=== PATIENT | male | born 1955 | race Caucasian/White ===

== ENCOUNTER 2025-02-02 11:59 | Inpatient (IN) ==
[2025-02-02] MEDS: SODIUM CHLORIDE 0.9% 500 ML IV ONE (13:25)
--- NOTE | 2025-02-02 13:36 | XRay Report ---
XR chest 1V portable CLINICAL HISTORY: weakness COMPARISON STUDY: None FINDINGS: Heart size and pulmonary vasculature are normal. No consolidation or pleural effusion. No p neumothorax. IMPRESSION: No acute findings. ACT 112: Negative or not required by law. Electronically signed by: aMo Bustos M.D. 02/02/2025 1:35 PM
[2025-02-02 13:57] LABS: Hematocrit (blood only) 40.0 % (42.0-52.0); Hemoglobin 13.7 g/dl (14.0-18.0); Immature Granulocytes # (auto) 0.12 K/uL (0.01-0.20); Immature Granulocytes % (auto) 0.7 %; Mean Corpuscular Hemoglobin 26.3 pg (25.0-34.0); Mean Corpuscular Volume 76.8 fL (80.0-100.0); Platelet Count 348 K/uL (130-400); RDW Standard Deviation 38.5 fL (36.4-46.3); Red Blood Count 5.21 M/uL (4.70-6.10); White Blood Count 18.35 K/ul (4.8-10.8)
[2025-02-02 14:16] LABS: Alanine Aminotransferase 39.0 U/L (7-52); Albumin Globulin Ratio 1.2 (0.9-2); Albumin Level 4.4 gm/dl (3.4-5.0); Alkaline Phosphatase 106.0 U/L (34-104); Anion Gap 12.0 (3-11); Bilirubin,Total 0.6 mg/dl (0.2-1.0); Blood Urea Nitrogen 113.0 mg/dl (6-23); Calcium 9.6 mg/dl (8.6-10.3); Carbon Dioxide 17.0 mmol/L (21-32); Chloride 98.0 mmol/L (98-107); Creatine Kinase 30.0 U/L (30-223); Creatinine Clr Calc Pharmacy 21.9 ml/min; Globulin 3.6 gm/dl (2.5-4.0); Glucose 179.0 mg/dl (70-99(Fasting)); Magnesium 2.6 mg/dl (1.7-2.4); Potassium 5.0 mmol/L (3.5-5.1); Sodium 127.0 mmol/L (136-145); Total Protein 8.0 gm/dl (6.0-8.3)
[2025-02-02 14:27] LABS: INR 1.0 (0.9-1.1); Prothrombin Time 10.7 Seconds (9.0-12.0)
--- NOTE | 2025-02-02 14:29 | Electrocardiogram Report ---
Test Reason : Blood Pressure : */* mmHG Vent. Rate : 82 BPM Atrial Rate : 82 BPM P-R Int : 164 ms QRS Dur : 140 ms QT Int : 400 ms P-R-T Axes : 65 31 11 degrees QTcB Int : 467 ms Normal sinus rhythm Right bundle branch block Abnormal ECG When compared with ECG of 06-May-1998 19:24, Right bundle branch block is now Present Confirmed by Robby Hernandez ([id number]) on 02/02/2025 2:28:43 PM Referred By: REFERRED SELF Confirmed By: Robby Hernandez
[2025-02-02 14:32] LABS: Thyroid Stimulating Hormone 0.782 uIu/ml (0.300-4.500)
--- NOTE | 2025-02-02 14:56 | Emergency Department Note ---
ED Provider Note History of Present Illness Chief Complaint: Bleeding Stated Complaint: BLEEDING POST STOMACH SURGERY Time Seen by Provider: 02/02/25 12:14 69-year-old Maldivian male who presents to the emergency department with his ex- ) who also provides history) for evaluation of a fall and passing out last night, as well as bleeding from his stoma. Majority of patient history was performed using a Maldivian orthopedic technician at bedside. According to the patient, he has had several abdominal surgeries for stomach cancer. The patient reports that he has had intermittent black stools since his last surgery on 01/10/2025. The patient started to notice blood in his stomach bag the past few days. The patient reports that he felt lightheaded last night and think that he passed out. He denies any other injuries from his fall, including headache, neck pain, back pain or extremity injuries. He currently denies any chest pain, shortness of breath or abdominal pain, and in fact denies any pain at the time of my examination. Home Medications Medication Instructions Recorded Confirmed Type amlodipine 10 mg tablet 10 mg PO QAM 02/02/25 02/02/25 History atorvastatin 10 mg tablet 10 mg PO QAM 02/02/25 02/02/25 History finasteride 5 mg tablet 5 mg PO QAM 02/02/25 02/02/25 History melatonin 10 mg tablet 10 mg PO HS 02/02/25 02/02/25 History tamsulosin 0.4 mg capsule 0.4 mg PO QAM 02/02/25 02/02/25 History Allergies Allergy/AdvReac Type Severity Reaction Status Date / Time No Known Allergies Allergy Verified 05/18/02 15:51 Past Med/Surg History Problem List GI bleed Adenocarcinoma of rectosigmoid junction (Acute) Duodenitis (Acute) Acute kidney injury (Acute) Acute hyponatremia (Acute) Syncope (Acute) Medical History Adenocarcinoma of rectosigmoid junction Surgical History History of resection of large bowel Social History Smoking Status: Never smoker Preferred Language: Maldivian Feels Safe at Home: Yes Physical Exam Vital Signs Vital Signs - 24 hr 02/02/25 12:02 02/02/25 13:34 02/02/25 13:34 Temperature 36.6 C Temperature Source Temporal Artery Scan Pulse Rate - Lying Pulse Rate - Sitting Pulse Rate - Standing Pulse Rate 105 H Pulse Rate [Apical] 86 Pulse Rhythm [Apical] Pulse Strength [Apical] Respiratory Rate 16 16 Respiratory Effort / Characteristics Non-Labored Spontaneous Respiratory Depth Respiratory Pattern Blood Pressure - Lying Blood Pressure - Sitting Blood Pressure- Standing Blood Pressure 104/80 Blood Pressure [Right Arm] 139/94 Blood Pressure Mean 88 Blood Pressure Mean [Right Arm] 109 Blood Pressure Position [Right Arm] Pulse Oximetry 92 98 98 Oxygen Delivery Method Room Air Room Air Sepsis Recent Fever Within 48 Hours No Sepsis New/Unexplained Change in Mental Status N/A Sepsis Action Taken by Nursing No Action Required 02/02/25 13:34 02/02/25 16:19 02/02/25 17:27 Temperature Temperature Source Pulse Rate - Lying 102 H Pulse Rate - Sitting 110 H Pulse Rate - Standing 132 H Pulse Rate 86 Pulse Rate [Apical] 95 H Pulse Rhythm [Apical] Regular Pulse Strength [Apical] Normal Respiratory Rate 16 18 Respiratory Effort / Characteristics Non-Labored Spontaneous Respiratory Depth Normal Respiratory Pattern Regular Blood Pressure - Lying 112/86 Blood Pressure - Sitting 92/57 L Blood Pressure- Standing 96/35 L Blood Pressure Blood Pressure [Right Arm] 113/84 Blood Pressure Mean Blood Pressure Mean [Right Arm] 93 Blood Pressure Position [Right Arm] Lying Pulse Oximetry 98 97 Oxygen Delivery Method Room Air Sepsis Recent Fever Within 48 Hours Sepsis New/Unexplained Change in Mental Status Sepsis Action Taken by Nursing 02/02/25 18:03 Temperature Temperature Source Pulse Rate - Lying Pulse Rate - Sitting Pulse Rate - Standing Pulse Rate 95 H Pulse Rate [Apical] Pulse Rhythm [Apical] Pulse Strength [Apical] Respiratory Rate Respiratory Effort / Characteristics Respiratory Depth Respiratory Pattern Blood Pressure - Lying Blood Pressure - Sitting Blood Pressure- Standing Blood Pressure Blood Pressure [Right Arm] Blood Pressure Mean Blood Pressure Mean [Right Arm] Blood Pressure Position [Right Arm] Pulse Oximetry Oxygen Delivery Method Sepsis Recent Fever Within 48 Hours Sepsis New/Unexplained Change in Mental Status Sepsis Action Taken by Nursing CONSTITUTIONAL: Healthy and well nourished. Patient does not appear in any acute distress. HEENT: No scleral icterus or conjunctival injection/pallor. Mucous membranes are dry. RESPIRATORY: Clear to auscultation bilaterally with no wheezing, crackles, rhonchi or stridor. CARDIOVASCULAR: Regular rate and rhythm with no murmurs, rubs or gallops. GASTROINTESTINAL: Bowel sounds present in all quadrants. Patient does not have any focalized abdominal tenderness to palpation. The patient's ileostomy bag does have trace amounts of blood with good liquid stool output. No deo- ileostomy tube erythema or edema noted. MUSCULOSKELETAL: Full range of motion of all major joints without discomfort. INTEGUMENTARY: No rash or other significant dermatologic conditions noted. HEMATOLOGIC: No ecchymosis or petechiae. PSYCHIATRIC: Flat but pleasant affect. NEUROLOGIC: No focal neurologic deficits noted. Course Course Patient history and physical exam were performed. I did have our Slice Cutting Machine Operator Helper pull up [facility] records that I may have a more thorough understanding and history of the patient's prior surgical intervention. I did review an outside [facility] colorectal surgery follow-up visit from 01/25/2025, showing that the patient had a lower anterior resection in April 2024, with subsequent diverting loop ileostomy performed earlier this month. Next follow-up appointment was scheduled for 1 month to discuss formal repair of a postoperative colorectal stricture. Further review of a PCP office note from 12/21/2024 does not show any other significant medical problems other than hypertension. IV access was established, and labs were ordered and drawn. An ECG was performed, showing a normal sinus rhythm with right bundle branch block. No prior ECGs were available for comparison. The patient was placed on laboratory monitor while in the emergency department. A portable chest x-ray was performed and was normal, showing no subdiaphragmatic air or other concerning intrathoracic findings. Review of labs shows a whole host of abnormal findings, including a leukocytosis with neutrophilic shift. Coag studies were normal. CMP shows a hyponatremia at 127, creatinine of 3.25, elevated glucose of 179, magnesium 2.6 and elevated troponin of 32.5. TSH is normal. I did have our Slice Cutting Machine Operator Helper also pull up the patient's latest labs from 01/25/2025 showing that he had a creatinine of 3.0 at that time as well. Noncontrast CT imaging of the head and cervical spine were normal other than degenerative changes. CT with IV contrast of the abdomen and pelvis suggestive of acute duodenitis/peptic ulcer disease involving the duodenum. No bowel obstruction, abdominal free air or colonic abscess is noted. Findings were discussed again with the patient via Maldivian orthopedic technician. At this point, I did recommend consultation with the [facility] hospitalist service. I initially spoke with them, who indicated that they would review the patient's prior medical records, and discuss possibility of referral to [facility] for further workup of his duodenitis. After reviewing records, they did agree to admit the patient for further treatment. Please see their dictation for further treatment and final disposition. The case was also discussed with Dr. Foreman, ED attending physician, who agrees with workup and hospitalist consultation. Administered Medications Discontinued Medications Sodium Chloride (Nss) 500 mls @ 999 mls/hr IV .Q31M ONE Stop: 02/02/25 13:37 Last Infusion: 02/02/25 17:03 Dose: Infused Documented By: Admin: 02/02/25 13:25 Dose: 999 mls/hr Documented By: BEHZAD Pantoprazole Sodium (Protonix) 40 mg in 10 mls @ 5 mls/min IV NOW ONE Stop: 02/02/25 16:30 Last Admin: 02/02/25 16:44 Dose: 5 mls/min Documented By: LORNA Sodium Chloride (Nss) 1,000 mls @ 999 mls/hr IV .Q1H1M ONE Stop: 02/02/25 18:16 Last Admin: 02/02/25 17:35 Dose: 999 mls/hr Documented By: DWAINE Medical Decision Making Medical Records Attestation: I reviewed the patient's medical records. Home Medications was personally reviewed by me Laboratory Data Attestation: I reviewed the patient's lab results. 02/02/25 13:21 02/02/25 13:21 Lab Results 02/02/25 02/02/25 02/02/25 Range/Units 13:21 16:46 Unknown WBC 18.35 H (4.8-10.8) K/ul RBC 5.21 (4.70-6.10) M/uL Hgb 13.7 L (14.0-18.0) g/dl Hct 40.0 L (42.0-52.0) % MCV 76.8 L (80.0-100.0) fL MCH 26.3 (25.0-34.0) pg MCHC 34.3 (32.0-36.0) g/dL RDW Std Deviation 38.5 (36.4-46.3) fL RDW Coeff of Courtney 14.0 (11.5-14.5) % Plt Count 348 (130-400) K/uL MPV 10.9 (9.4-12.4) fL Immature Gran % (Auto) 0.7 % Neut % (Auto) 86.1 % Lymph % (Auto) 5.9 % [place] % (Auto) 7.2 % Eos % (Auto) 0.0 % Baso % (Auto) 0.1 % Neut # (Auto) 15.81 H (1.40-6.50) K/uL Lymph # (Auto) 1.09 L (1.20-3.40) K/uL [place] # (Auto) 1.32 H (0.11-0.59) K/uL Eos # (Auto) 0.00 (0.00-0.50) K/uL Baso # (Auto) 0.01 (0.00-0.20) K/uL Immature Gran # (Auto) 0.12 (0.01-0.20) K/uL PT 10.7 (9.0-12.0) Seconds INR 1.0 (0.9-1.1) Sodium 127 L (136-145) mmol/L Potassium 5.0 (3.5-5.1) mmol/L Chloride 98 (98-107) mmol/L Carbon Dioxide 17 L (21-32) mmol/L Anion Gap 12 H (3-11) BUN 113 H (6-23) mg/dl Creatinine 3.25 H (0.6-1.4) mg/dl Est Cr Clr Drug Dosing 21.9 ml/min eGFR 19.68 BUN/Creatinine Ratio 34.8 H (10-20) Glucose 179 H (70-99(Fasting)) mg/dl Osmolality 315 H (280-300) mOsm/kg Calcium 9.6 (8.6-10.3) mg/dl Magnesium 2.6 H (1.7-2.4) mg/dl Total Bilirubin 0.6 (0.2-1.0) mg/dl AST 15 (13-39) U/L ALT 39 (7-52) U/L Alkaline Phosphatase 106 H (34-104) U/L Total Creatine Kinase 30 (30-223) U/L Troponin I High Sens 32.5 H (0-20) pg/ml Total Protein 8.0 (6.0-8.3) gm/dl Albumin 4.4 (3.4-5.0) gm/dl Globulin 3.6 (2.5-4.0) gm/dl Albumin/Globulin Ratio 1.2 (0.9-2) TSH 0.782 (0.300-4.500) uIu/ml Urine Color Yellow Urine Appearance Cloudy A (Clear) Urine pH 5.0 (4.5-7.5) Ur Specific [place] 1.017 (1.000-1.030) Urine Protein 2+ H (Negative) Urine Glucose (UA) 1+ H (Negative) Urine Ketones Negative (Negative) Urine Blood 3+ H (Negative) Urine Nitrite Negative (Negative) Urine Bilirubin Negative (Negative) Urine Urobilinogen Negative (Negative) Ur Leukocyte Esterase 2+ H (Negative) Urine WBC (Auto) >50 H (0-5) /hpf Urine RBC (Auto) 6-10 H (0-2) /hpf U Hyaline Cast (Auto) >20 H (0-2) /lpf U Epithel Cells (Auto) 6-10 H (0-2) /hpf Urine Bacteria (Auto) None Seen (None Seen) Granular Casts Present A (None Prsent) /lpf Urine Osmolality 541 (500-800) mOsm/kg Ur Random Sodium 18 mmol/L Urine Comment Imaging Data Attestation: I personally reviewed and interpreted this imaging study as follows: My Impression: My interpretation of reportable chest x-ray does not show evidence for pneumonia, cardiomegaly or pneumothorax. My interpretation of a noncontrast CT scan of the head does not show evidence for skull fracture, intracranial bleed, midline shift or mass effect. My interpretation of noncontrast CT scan of the cervical spine shows degenerative changes without fracture or subluxation. My interpretation of CT with IV contrast of the abdomen and pelvis does not show any obvious diverticular changes, abdominal free air or abscesses. Radiologist does make mention of possible duodenitis versus peptic ulcer disease. Radiologist reports were otherwise reviewed with concurrence. Radiologist's Impression: Chest X-Ray 02/02/25 13:08 XR chest 1V portable CLINICAL HISTORY: weakness COMPARISON STUDY: None FINDINGS: Heart size and pulmonary vasculature are normal. No consolidation or pleural effusion. No pneumothorax. IMPRESSION: No acute findings. ACT 112: Negative or not required by law. Electronically signed by: Mao Bustos M.D. 02/02/2025 1:[address] 02/02/25 13:08 CT SCAN OF THE BRAIN WITHOUT IV CONTRAST CLINICAL HISTORY: Fall. COMPARISON STUDY: None. TECHNIQUE: Unenhanced axial CT scan of the brain was performed from the vertex to the skull base. A dose lowering technique was utilized adhering to the principles of ALARA. FINDINGS: Brain parenchyma: No acute intracranial hemorrhage, midline shift or mass effect is present. Nelson-white matter differentiation is preserved. There are no extra- axial fluid collections. There are no findings to suggest acute dural sinus thrombosis or acute territorial infarct. White matter hypodensity suggests small vessel disease. Ventricles, sulci, cisterns: There is no hydrocephalus. The basal cisterns are patent. Calvarium: There are no calvarial fractures. Sinuses and mastoids: The visualized paranasal sinuses are clear. The mastoid air cells are well pneumatized. Orbits: The bony orbits are grossly intact. IMPRESSION: 1. No acute intracranial findings. 2. No calvarial fractures. ACT 112: Negative or not required by law. Electronically signed by: Devin Abdi M.D. 02/02/2025 3:[address] 02/02/25 13:11 CT cervical spine wo con CT DOSE: 1135.92 mGy.cm CLINICAL HISTORY: s/p fall, possible syncope. COMPARISON: None TECHNIQUE: Multiple axial CT images of the cervical spine were obtained without contrast. A dose lowering technique was utilized adhering to the principles of ALARA. FINDINGS: There are mild diffuse degenerative changes of the cervical spine. There are small calcifications adjacent to the anterior superior aspect of the C4, C5, C6, and C7 vertebral bodies which are likely degenerative in nature. No cervical spine fracture or subluxation seen. IMPRESSION: No cervical spine fracture seen. ACT 112: Negative or not required by law. The above report was generated using voice recognition software. It may contain grammatical, syntax or spelling errors. Electronically signed by: Mao Bustos M.D. 02/02/2025 3:28 PM Abdomen/Pelvis CT 02/02/25 14:[address] WITHOUT CONTRAST CT DOSE: 869.62 mGy.cm HISTORY: Follow-up study in patient with history of rectosigmoid carcinoma and acute GI bleed Stoma blood,rectosigmoid CA,nonpatent coloproctost TECHNIQUE: Multiaxial CT images of the abdomen and pelvis were performed without contrast. A dose lowering technique was utilized adhering to the principles of ALARA. COMPARISON STUDY: None. FINDINGS: Moderate coronary artery calcifications. Trace right pleural effusion with mild bibasilar atelectasis. 5 mm solid nodule in the right lower lobe on image 4 series 3. No pneumatosis or pneumoperitoneum. The unenhanced spleen, pancreas, contracted gallbladder and right adrenal gland are within normal limits. Thickening of the left adrenal gland favors hyperplasia. There are a few scattered punctate calcifications noted throughout the liver. Possible cyst of the right hepatic lobe, 9 mm. There are a few left- sided renal sinus cysts. Moderate right-sided hydroureteronephrosis with ureteral stent in place. Prostatomegaly. Bladder wall thickening which speculation and numerous diverticula. No renal or ureteral calculi. Atherosclerosis of the aorta without aneurysm. No lymphadenopathy. Moderate distal soft tissue wall thickening with periesophageal stranding. There is additional wall thickening of the pylorus, first and second portions of the duodenum with apparent mucosal ulceration involving the first portion of the duodenum on image 107 series 3. No abscess or definite extraluminal air. Soft tissue thickening with centrally air-filled collection within the presacral tissues measures up to approximately 9 cm and may demonstrate fistulous connection with the adjacent rectum where there are associated surgical sutures. There is a right lower quadrant ileostomy. Noninflamed appendix. No acute fracture or destructive bone lesion. Likely chronic anterior cortical thickening of the sacrum adjacent to the aforementioned collection. Possible sebaceous cyst in the left lower back measuring 3 cm. IMPRESSION: 1. Findings suggestive of acute duodenitis/peptic ulcer disease involving the first and second portions of the duodenum. Findings could be correlated with endoscopy to exclude an ulcerative mucosal malignancy. 2. No bowel obstruction, pneumoperitoneum or abscess. 3. Probable distal esophagitis. 4. Likely chronic presacral soft tissue thickening/collection which may demonstrate fistulous connection with the adjacent rectum. 5. Right lower quadrant ileostomy. 6. Prostatomegaly with chronic outlet obstruction. 7. Moderate right-sided hydroureteronephrosis with ureteral stent in place. 8. 5 mm solid nodule of the right lower lobe. ACT 112: Negative or not required by law. The above report was generated using voice recognition software. It may contain grammatical, syntax or spelling errors. Electronically signed by: Anson Alvarez M.D. 02/02/2025 3:31 PM ECG Data Attestation: I personally reviewed and interpreted this ECG as follows: Indication: + syncope Rate (beats per minute): 82 Rhythm: + normal sinus ECG Intervals/blocks: + Right Bundle branch block ECG [place]: + Normal ECG ST segments: + Normal ST segments Comparison ECG Date: no prior available MDM Narrative Cardiac monitoring: An order was placed for continuous cardiac monitoring. The monitor shows a rate of 82 bpm with a normal sinus rhythm. quality assurance monitor body history was reviewed throughout the evaluation, and no dysrhythmias were noted. See ED Course section for further details of today's visit. The patient presents with complaint of a syncopal episode last night. On presentation today, however, the patient denies any pain. He reports that he has had some blood through his ileostomy site over the past several days, with a history of multiple bowel surgeries for rectosigmoid adenocarcinoma. These procedures were performed at [facility]. On today's workup, the patient does not have any concerning cardiac findings other than a right bundle branch block, however he does have a bumped troponin. His labs also show significant electrolyte abnormalities, with a leukocytosis of over 18,000 with neutrophilic shift, hyponatremia, and increasing creatinine of 3.25, when compared to prior labs that were just drawn on 01/25/25. His troponin was also mildly elevated at 32.5. CT imaging of the abdomen and pelvis does show questionable duodenitis versus peptic ulcer disease versus malignancy, otherwise no other acute findings of the abdomen pelvis, related to his prior surgical procedures. I did discuss the case further with the [facility] hospitalist service, who reviewed his outside records, and does agree to admit the patient for further management. The case was also discussed with Dr. Foreman, ED attending physician, who agrees with workup and hospitalist consultation. Impression Syncope, Acute hyponatremia, Acute kidney injury, Duodenitis, Adenocarcinoma of rectosigmoid junction Discharge Plan Visit Data Chief Complaint: Bleeding Stated Complaint: BLEEDING POST STOMACH SURGERY ED Provider: Ignacia Foreman ED Midlevel Provider: John Guallpa Discharge Problem: Syncope, Acute hyponatremia, Acute kidney injury, Duodenitis, Adenocarcinoma of rectosigmoid junction Patient Disposition: Admitted As Inpatient Condition: Fair Forms Stand Alone Forms: [facility] Prescriptions Prescriptions: No Action atorvastatin 10 mg tablet 10 mg PO QAM tamsulosin 0.4 mg capsule 0.4 mg PO QAM amlodipine 10 mg tablet 10 mg PO QAM finasteride 5 mg tablet 5 mg PO QAM melatonin 10 mg Tablet 10 mg PO HS Referrals Referrals: Manuel Jj DO [Primary Care Provider] - ED DC CONDITION Conditon at Discharge Condition at Discharge: Fair
--- NOTE | 2025-02-02 15:06 | Emergency Department Note ---
ED Visit Note I was consulted by the Advanced Practice Provider, John Guallpa PA-C. I performed a substantive portion of the visit. This includes aspects of: History: Patient is a 69-year-old male presenting with syncope and a fall. Patient reports that he has had several abdominal surgeries for history of stomach cancer. He has had intermittent black stools since his last surgery in early January. He noticed some blood in his stoma bag a few days ago. He started feeling lightheaded last night and thinks he may have passed out. MDM: Workup in the emergency department does show a leukocytosis, hyponatremia and new significantly elevated creatinine levels. I have elevated troponin. CT head without contrast negative for acute pathology. CT cervical spine negative for acute pathology. CT abdomen/pelvis showed findings of acute duodenitis versus peptic ulcer disease. Patient was given IV fluids and Protonix in the ER. Will admit to hospitalist service for further evaluation and management. .
--- NOTE | 2025-02-02 15:30 | CT Scan Report ---
CT cervical spine wo con CT DOSE: 1135.92 mGy.cm CLINICAL HISTORY: s/p fall, possible syncope. COMPARISON: None TECHNIQUE: Multiple axial CT images of the cervical spine were obtained without contrast. A dose low ering technique was utilized adhering to the principles of ALARA. FINDINGS: There are mild diffuse degenerative changes of the cervical spine. There are small calcific ations adjacent to the anterior superior aspect of the C4, C5, C6, and C7 vertebral bodies which are likely degenerative in nature. No cervical spine fracture or subluxation seen. IMPRESSION: No cervical spine fracture seen. ACT 112: Negative or not required by law. The above report was generated using voice recognition software. It may contain grammatical, syntax o r spelling errors. Electronically signed by: Mao Bustos M.D. 02/02/2025 3:28 PM
--- NOTE | 2025-02-02 15:32 | CT Scan Report ---
ABDOMEN AND PELVIS CT WITHOUT CONTRAST CT DOSE: 869.62 mGy.cm HISTORY: Follow-up study in patient with history of rectosigmoid carcinoma and acute GI bleed Stoma blood,rectosigmoid CA,nonpatent coloproctost TECHNIQUE: Multiaxial CT images of the abdomen and pelvis were performed without contrast. A dose lo wering technique was utilized adhering to the principles of ALARA. COMPARISON STUDY: None. FINDINGS: Moderate coronary artery calcifications. Trace right pleural effusion with mild bibasilar a telectasis. 5 mm solid nodule in the right lower lobe on image 4 series 3. No pneumatosis or pneumope ritoneum. The unenhanced spleen, pancreas, contracted gallbladder and right adrenal gland are within normal richards its. Thickening of the left adrenal gland favors hyperplasia. There are a few scattered punctate calc ifications noted throughout the liver. Possible cyst of the right hepatic lobe, 9 mm. There are a few left-sided renal sinus cysts. Moderate right-sided hydroureteronephrosis with ureteral stent in plac e. Prostatomegaly. Bladder wall thickening which speculation and numerous diverticula. No renal or ur eteral calculi. Atherosclerosis of the aorta without aneurysm. No lymphadenopathy. Moderate distal soft tissue wall thickening with periesophageal stranding. There is additional wall t hickening of the pylorus, first and second portions of the duodenum with apparent mucosal ulceration involving the first portion of the duodenum on image 107 series 3. No abscess or definite extralumina l air. Soft tissue thickening with centrally air-filled collection within the presacral tissues measu res up to approximately 9 cm and may demonstrate fistulous connection with the adjacent rectum where there are associated surgical sutures. There is a right lower quadrant ileostomy. Noninflamed appendi x. No acute fracture or destructive bone lesion. Likely chronic anterior cortical thickening of the s acrum adjacent to the aforementioned collection. Possible sebaceous cyst in the left lower back measu ring 3 cm. IMPRESSION: 1. Findings suggestive of acute duodenitis/peptic ulcer disease involving the first and second portio ns of the duodenum. Findings could be correlated with endoscopy to exclude an ulcerative mucosal padmini gnancy. 2. No bowel obstruction, pneumoperitoneum or abscess. 3. Probable distal esophagitis. 4. Likely chronic presacral soft tissue thickening/collection which may demonstrate fistulous connect ion with the adjacent rectum. 5. Right lower quadrant ileostomy. 6. Prostatomegaly with chronic outlet obstruction. 7. Moderate right-sided hydroureteronephrosis with ureteral stent in place. 8. 5 mm solid nodule of the right lower lobe. ACT 112: Negative or not required by law. The above report was generated using voice recognition software. It may contain grammatical, syntax o r spelling errors. Electronically signed by: Anson Alvarez M.D. 02/02/2025 3:31 PM
--- NOTE | 2025-02-02 15:39 | CT Scan Report ---
CT SCAN OF THE BRAIN WITHOUT IV CONTRAST CLINICAL HISTORY: Fall. COMPARISON STUDY: None. TECHNIQUE: Unenhanced axial CT scan of the brain was performed from the vertex to the skull base. A dose lowering technique was utilized adhering to the principles of ALARA. FINDINGS: Brain parenchyma: No acute intracranial hemorrhage, midline shift or mass effect is present. Nelson-whi te matter differentiation is preserved. There are no extra-axial fluid collections. There are no find ings to suggest acute dural sinus thrombosis or acute territorial infarct. White matter hypodensity s uggests small vessel disease. Ventricles, sulci, cisterns: There is no hydrocephalus. The basal cisterns are patent. Calvarium: There are no calvarial fractures. Sinuses and mastoids: The visualized paranasal sinuses are clear. The mastoid air cells are well pneu matized. Orbits: The bony orbits are grossly intact. IMPRESSION: 1. No acute intracranial findings. 2. No calvarial fractures. ACT 112: Negative or not required by law. Electronically signed by: Devin Abdi M.D. 02/02/2025 3:37 PM
--- NOTE | 2025-02-02 16:31 | History & Physical Report ---
<Statement entered by Fredy Mitchell, DO - 02/02/25 21:30> I have seen and examined the patient and have discussed the case with the advance practice provider. I have reviewed the advanced practitioner's documentation, and I agree with, and take responsibility for that plan of care. Able to speak with patient through video premises technician with KELSEY at bedside. Patient with acute blood loss due to suspected upper GI bleed as evidenced on imaging. Continue to monitor hemoglobin PPI twice daily Suspect acute kidney injury is prerenal due to excessive volume loss and patient not orally replacing. Continue IV fluid resuscitation monitoring renal function. If renal function does not improve with IV fluids may need to consider nephrology consultation Further plan of care as outlined below I spent a total of 19 minutes coordinating, documenting, and providing care for this patient excluding time spent by another provider/QHP. 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 #GI Bleed #History rectosigmoid adenocarcinoma S/P LAR with coloproctostomy Possible ulcer/duodenitis vs underlying malignancy S/P exploratory laparotomy, takedown of colorectal anastomoses, revised anastomoses, diverting ostomy by Dr. Yip on 01/10/25 at [facility]. Today in ER Afebrile, P: 105, R: 16, BP 104/80, 92% on room air In ER given 500 mL NSS Repeat vitals: P: 95, R: 17, BP 140/97, 98% on room air In ER WBC: 18 (WBC 11 on 01/25/2025 and 6 on 01/15/2025), H/H: 13/40 (Hgb 13 on 01/25/2025 and 10 on 01/15/2025) CT Abd/pelvis 1. Findings suggestive of acute duodenitis/peptic ulcer disease involving the first and second portions of the duodenum. Findings could be correlated with endoscopy to exclude an ulcerative mucosal malignancy. 2. No bowel obstruction, pneumoperitoneum or abscess. 3. Probable distal esophagitis. 4. Likely chronic presacral soft tissue thickening/collection which may demonstrate fistulous connection with the adjacent rectum. 5. Right lower quadrant ileostomy. Noted black color stools in ostomy bag Hemoccult stool Monitor H&H NPO IVF PPI IV BID GI consult per outpt chart review: Flex Sig 11/2024 Impression: Preparation of the colon was fair. Non-patent end-to-end coloproctostomy, characterized by severe stenosis. Unable to identify the true anastomotic lumen due to the progression of the stenosis. A small <5mm area of anastomotic dehiscence was noted. Dilation was not performed. Benign granular polypoid lesion at the colonic anastomosis. 01/12/25 MRI Rectal Cancer w/wo contrast: Fibrotic stenosis and tethering of the rectosigmoid anastomosis. In addition, there is breakdown of the posterior aspect of the anastomosis with an associated presacral collection. No viable tumor is seen. 01/25/25 Follow up with colorectal surgery at [facility] and decision to keep his ileostomy in place and was concern of ileostomy is putting out too much and causing dehydration. Plan was to see back in 1 month to discuss formal repair of his colorectal stricture. #Syncope Reported lightheaded with standing x 1 week with suspected syncope yesterday CT Head: No acute intracranial findings. No calvarial fractures. Suspect orthostatic hypotension Obtain orthostatic vitals Hold home amlodipine and finasteride for now Fall precautions IVF #ELDON Poor oral intake. Suspect moderate ostomy output CT abd/pelvis: Prostatomegaly with chronic outlet obstruction. Moderate right- sided hydroureteronephrosis with ureteral stent in place. BUN: 113, Cr: 3.25 Recent post op ELDON treated with IVF at [facility] . Improvement of renal function upon discharge on 01/15/25. (Max Cr: 2.6 on 01/11/25, improved to Cr: 1.9 on 01/15/25) IVF Monitor renal functions, avoid nephrotoxic agents If no improvement consider nephrology consult #Hyponatremia Poor oral intake with vomiting Na: 127 In ER given 500ml NSS Obtain serum osmolality, urine osmolality, urine sodium IVF Monitor BMP #Abnormal UA #Hydronephrosis 01/10/25 S/P Cystoscopy, bilateral retrograde pyelograms, Cystoscopy, right ureteral stent placement, left ureteral catheter placement at [facility] Was initially treated for possible UTI with Rocephin and urine culture was negative so antibiotics discontinued during recent [facility] admission. Denies dysuria, hematuria, urinary frequency or retention CT Abd/pelvis: Today Abnormal UA: 2+ leuk esterase, >50 WBC, 6-10 RBC, 6-10 epithelial cells, no bacteria, granular casts present Was initially treated for possible UTI with Rocephin and urine culture was negative so antibiotics discontinued. Urine culture, blood culture pending Empiric Rocephin for now, follow urine culture #Elevated Troponin Denies CP, SOB EKG: Sinus rhythm, rate 80 RBBB per my interpretation Per outpatient chart review EKG 01/10/2025: Sinus rhythm, occasional PVC, RBBB Troponin: 32 Repeat troponin EKG in am If troponins uptrending or CP consider echo and/or cardiology consult #HTN Hold amlodipine for now with lower BPs and symptoms of orthostasis #BPH Continue Flomax Will hold finasteride for now with orthostatic symptoms #Pulmonary nodule CT abd/pelvis noted 5 mm solid nodule of the right lower lobe. Will need further outpatient follow up DVT Prophylaxis SCDs Admit Telemetry DNR/DNI as per discussion with pt, pt's Follows with Albina Chang PA-C for routine care Pt was seen and care coordinated with Dr Mitchell. See addendum I spent a total of 80 minutes reviewing notes, outpatient records, labs, medication, coordinating, documenting and providing care for this patient excluding time spent in the performance of separately billed services and excluding time spent by another provider/QHP. 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 Patient is Argentine speaking and use the premises technician service. Per chart review patient with history hospitalization at [facility] 01/10/2025-01/15/2025 for exploratory laparotomy, takedown of colorectal anastomoses, revised anastomoses, diverting ostomy by Dr. Yip on 01/10/25. S/P cystoscopy and right ureteral stent for hydronephrosis on 01/10/25 also. Post-op developed ELDON treated with IVF. Was initially treated for possible UTI with Rocephin and urine culture was negative so antibiotics discontinued. Improvement of renal function upon discharge on 01/15/25. Patient states one week ago started with black color output into ostomy bag. States for past week with nausea and having vomiting with eating and drinking. States vomited yesterday black color and this morning black color emesis. Denies any further vomiting. He reports has had constant abdominal discomfort since his procedure several weeks ago and points to across his abdomen. He doesn't feel any worsening abdominal pain. He states he empties his bag multiple times a day and reports has varying amounts of output but is unable to quantify how much. He feels it varies and has been similar for past couple of months. Patient reports for past week having dizziness/lightheadedness with standing. Yesterday stood up and felt lightheaded and reports fell and thinks passed out. He was able to get himself up. Denies dizziness at rest. Denies CP, SOB, NAQVI, vision changes, paresthesias. States hasn't been taking BP meds as concerned with dizziness and low blood pressure. No history EGD in past. Denies NSAID use. Denies fever/chills, NAQVI, neck pain, CP, SOB, orthopnea, palpitations, cough, sore throat, rhinorrhea, paresthesias, extremity weakness, extremity edema, rashes, dysuria, hematuria, urinary retention, urinary frequency. Allergies Allergy/AdvReac Type Severity Reaction Status Date / Time No Known Allergies Allergy Verified 05/18/02 15:51 Home Medications Medication Instructions Recorded Confirmed Type amlodipine 10 mg tablet 10 mg PO QAM 02/02/25 02/02/25 History finasteride 5 mg tablet 5 mg PO QAM 02/02/25 02/02/25 History melatonin 10 mg tablet 10 mg PO HS 02/02/25 02/02/25 History tamsulosin 0.4 mg capsule 0.4 mg PO QAM 02/02/25 02/02/25 History Past Med/Surg History Problem List GI bleed Adenocarcinoma of rectosigmoid junction (Acute) Duodenitis (Acute) Acute kidney injury (Acute) Acute hyponatremia (Acute) Syncope (Acute) Medical History Adenocarcinoma of rectosigmoid junction Surgical History History of colonoscopy History of resection of large bowel Family History Father Stroke Mother Diabetes Social History Smoking Status: Never smoker Hx Alcohol Use: No Hx Substance Use: No Preferred Language: Argentine Feels Safe at Home: Yes Review of Systems Review of Systems: All systems reviewed & are unremarkable except as noted in HPI & below Physical Exam Physical Exam: General: no distress, WDWN Head: normocephalic, atraumatic Eyes: PERRL, EOM's intact, conjunctiva non-injected, anicteric ENT: normal inspection external ears, nose, mucous membranes mildly dry Neck: supple, trachea midline Lungs: clear, no respiratory distress, no wheezing/rhonchi/rales CV: RRR, no murmur, no pretibial edema Abd: +ostomy with black color stool noted in bag, normal BS, soft, non-tender to palpation Ext: no cyanosis, no calf tenderness Neuro: A&O x 3, no focal deficits noted, normal affect Skin: warm, dry Results & Data Results & Data Vital Signs (Past 12 Hours) Vital Signs Temp Pulse Pulse Resp BP BP Pulse Ox 02/02/25 16:19 95 H 18 113/84 97 02/02/25 13:34 86 16 98 02/02/25 13:34 86 16 139/94 98 02/02/25 13:34 98 02/02/25 12:02 36.6 C 105 H 16 104/80 92 O2 Del Method 02/02/25 16:19 02/02/25 13:34 Room Air 02/02/25 13:34 Room Air 02/02/25 13:34 Room Air 02/02/25 12:02 Laboratory Results Short CBC 02/02/25 Range/Units 13:21 WBC 18.35 H (4.8-10.8) K/ul Hgb 13.7 L (14.0-18.0) g/dl Hct 40.0 L (42.0-52.0) % Plt Count 348 (130-400) K/uL BMP 02/02/25 13:21 Sodium 127 L Potassium 5.0 Chloride 98 Carbon Dioxide 17 L BUN 113 H Creatinine 3.25 H Glucose 179 H Calcium 9.6 Cardiac Enzymes 02/02/25 Range/Units 13:21 Total Creatine Kinase 30 (30-223) U/L Liver Function 02/02/25 Range/Units 13:21 Total Bilirubin 0.6 (0.2-1.0) mg/dl AST 15 (13-39) U/L ALT 39 (7-52) U/L Alkaline Phosphatase 106 H (34-104) U/L Albumin 4.4 (3.4-5.0) gm/dl Urine 02/02/25 Range/Units 16:46 Urine Color Yellow Urine Appearance Cloudy A (Clear) Urine pH 5.0 (4.5-7.5) Ur Specific [place] 1.017 (1.000-1.030) Urine Protein 2+ H (Negative) Urine Glucose (UA) 1+ H (Negative) Diagnostic Findings Chest X-Ray 02/02/25 13:08 XR chest 1V portable CLINICAL HISTORY: weakness COMPARISON STUDY: None FINDINGS: Heart size and pulmonary vasculature are normal. No consolidation or pleural effusion. No pneumothorax. IMPRESSION: No acute findings. ACT 112: Negative or not required by law. Electronically signed by: Mao Bustos M.D. 02/02/2025 1:[address] 02/02/25 13:08 CT SCAN OF THE BRAIN WITHOUT IV CONTRAST CLINICAL HISTORY: Fall. COMPARISON STUDY: None. TECHNIQUE: Unenhanced axial CT scan of the brain was performed from the vertex to the skull base. A dose lowering technique was utilized adhering to the principles of ALARA. FINDINGS: Brain parenchyma: No acute intracranial hemorrhage, midline shift or mass effect is present. Nelson-white matter differentiation is preserved. There are no extra- axial fluid collections. There are no findings to suggest acute dural sinus thrombosis or acute territorial infarct. White matter hypodensity suggests small vessel disease. Ventricles, sulci, cisterns: There is no hydrocephalus. The basal cisterns are patent. Calvarium: There are no calvarial fractures. Sinuses and mastoids: The visualized paranasal sinuses are clear. The mastoid air cells are well pneumatized. Orbits: The bony orbits are grossly intact. IMPRESSION: 1. No acute intracranial findings. 2. No calvarial fractures. ACT 112: Negative or not required by law. Electronically signed by: Devin Abdi M.D. 02/02/2025 3:[address] 02/02/25 13:11 CT cervical spine wo con CT DOSE: 1135.92 mGy.cm CLINICAL HISTORY: s/p fall, possible syncope. COMPARISON: None TECHNIQUE: Multiple axial CT images of the cervical spine were obtained without contrast. A dose lowering technique was utilized adhering to the principles of ALARA. FINDINGS: There are mild diffuse degenerative changes of the cervical spine. There are small calcifications adjacent to the anterior superior aspect of the C 4, C5, C6, and C7 vertebral bodies which are likely degenerative in nature. No cervical spine fracture or subluxation seen. IMPRESSION: No cervical spine fracture seen. ACT 112: Negative or not required by law. The above report was generated using voice recognition software. It may contain grammatical, syntax or spelling errors. Electronically signed by: Mao Bustos M.D. 02/02/2025 3:28 PM Abdomen/Pelvis CT 02/02/25 14:[address] WITHOUT CONTRAST CT DOSE: 869.62 mGy.cm HISTORY: Follow-up study in patient with history of rectosigmoid carcinoma and acute GI bleed Stoma blood,rectosigmoid CA,nonpatent coloproctost TECHNIQUE: Multiaxial CT images of the abdomen and pelvis were performed without contrast. A dose lowering technique was utilized adhering to the principles of ALARA. COMPARISON STUDY: None. FINDINGS: Moderate coronary artery calcifications. Trace right pleural effusion with mild bibasilar atelectasis. 5 mm solid nodule in the right lower lobe on image 4 series 3. No pneumatosis or pneumoperitoneum. The unenhanced spleen, pancreas, contracted gallbladder and right adrenal gland are within normal limits. Thickening of the left adrenal gland favors hyperplasia. There are a few scattered punctate calcifications noted throughout the liver. Possible cyst of the right hepatic lobe, 9 mm. There are a few left- sided renal sinus cysts. Moderate right-sided hydroureteronephrosis with ureteral stent in place. Prostatomegaly. Bladder wall thickening which speculation and numerous diverticula. No renal or ureteral calculi. Atherosclerosis of the aorta without aneurysm. No lymphadenopathy. Moderate distal soft tissue wall thickening with periesophageal stranding. There is additional wall thickening of the pylorus, first and second portions of the duodenum with apparent mucosal ulceration involving the first portion of the duodenum on image 107 series 3. No abscess or definite extraluminal air. Soft tissue thickening with centrally air-filled collection within the presacral tissues measures up to approximately 9 cm and may demonstrate fistulous connection with the adjacent rectum where there are associated surgical sutures. There is a right lower quadrant ileostomy. Noninflamed appendix. No acute fracture or destructive bone lesion. Likely chronic anterior cortical thickening of the sacrum adjacent to the aforementioned collection. Possible sebaceous cyst in the left lower back measuring 3 cm. IMPRESSION: 1. Findings suggestive of acute duodenitis/peptic ulcer disease involving the first and second portions of the duodenum. Findings could be correlated with endoscopy to exclude an ulcerative mucosal malignancy. 2. No bowel obstruction, pneumoperitoneum or abscess. 3. Probable distal esophagitis. 4. Likely chronic presacral soft tissue thickening/collection which may demonstrate fistulous connection with the adjacent rectum. 5. Right lower quadrant ileostomy. 6. Prostatomegaly with chronic outlet obstruction. 7. Moderate right-sided hydroureteronephrosis with ureteral stent in place. 8. 5 mm solid nodule of the right lower lobe. ACT 112: Negative or not required by law. The above report was generated using voice recognition software. It may contain grammatical, syntax or spelling errors. Electronically signed by: Anson Alvarez M.D. 02/02/2025 3:31 PM ECG Additional Comments: Sinus rhythm, rate 80 RBBB per my interpretation Per outpatient chart review EKG 01/10/2025: Sinus rhythm, occasional PVC, RBBB
[2025-02-02] MEDS: PANTOprazole 40 MG/10 ML SYR IV ONE (16:44)
[2025-02-02 17:23] LABS: Appearance Urine Cloudy (Clear); Bacteria Urine Automated None Seen (None Seen); Cast Urine Automated >20 /lpf (0-2); Glucose Urine UA 1+ (Negative); WBC Urine Automated >50 /hpf (0-5)
[2025-02-02] MEDS: SODIUM CHLORIDE 0.9% 1,000 ML IV ONE (17:35)
[2025-02-03] MEDS ORDERED: ONDANSETRON INJ 2 MG/ML 2 ML VIAL IV PRN (00:03)
[2025-02-03] MEDS: cefTRIAXone SODIUM 2,000 MG/50 ML BAG IV SCH (00:38)
[2025-02-03] MEDS: SODIUM CHLORIDE 0.9% 1,000 ML IV SCH (00:39)
[2025-02-03] MEDS: PANTOprazole 40 MG/10 ML SYR IV SCH (00:39)
[2025-02-03 07:09] LABS: Hematocrit (blood only) 35.1 % (42.0-52.0); Hemoglobin 12.1 g/dl (14.0-18.0); Immature Granulocytes # (auto) 0.06 K/uL (0.01-0.20); Immature Granulocytes % (auto) 0.5 %; Mean Corpuscular Hemoglobin 27.3 pg (25.0-34.0); Mean Corpuscular Volume 79.2 fL (80.0-100.0); Platelet Count 266 K/uL (130-400); RDW Standard Deviation 41.3 fL (36.4-46.3); Red Blood Count 4.43 M/uL (4.70-6.10); White Blood Count 12.33 K/ul (4.8-10.8)
[2025-02-03 07:49] LABS: Anion Gap 9.0 (3-11); Blood Urea Nitrogen 98.0 mg/dl (6-23); Calcium 9.0 mg/dl (8.6-10.3); Carbon Dioxide 18.0 mmol/L (21-32); Chloride 107.0 mmol/L (98-107); Creatinine Clr Calc Pharmacy 26.6 ml/min; Glucose 116.0 mg/dl (70-99(Fasting)); Magnesium 2.4 mg/dl (1.7-2.4); Potassium 4.5 mmol/L (3.5-5.1); Sodium 134.0 mmol/L (136-145)
--- NOTE | 2025-02-03 08:51 | Gastrointestinal Consultation ---
Date of Consultation February 03, 2025 Assessment & Plan (1) GI bleed: Dark stools for a week but not much drop in hemoglobin. CT suggests duodenal ulcer. Agree with use of pantoprazole at this point. Since hemoglobin still normal, EGD not urgent/emergent so will plan EGD for wednesday. Can have clear li quid diet until then. History of Present Illness Reason for Consultation: melena Attending Physician: John Rascon MD History of Present Illness 69 year old [place] gentleman who is here with dark stools for a week. Patient has a history of colon cancer and just had diverting ileostomy done at [facility] for anastomotic problems. Patient does not know specifically when the dark stools started. He has had "a little pain". Denies taking peptobismol. Has never had an ulcer before. H/H remain stable after rehydration although a small drop. CT suggests duodenal ulcer or duodenitits Allergies Allergy/AdvReac Type Severity Reaction Status Date / Time No Known Allergies Allergy Verified 05/18/02 15:51 Home Medications Medication Instructions Recorded Confirmed Type amlodipine 10 mg tablet 10 mg PO QAM 02/02/25 02/02/25 History finasteride 5 mg tablet 5 mg PO QAM 02/02/25 02/02/25 History melatonin 10 mg tablet 10 mg PO HS 02/02/25 02/02/25 History tamsulosin 0.4 mg capsule 0.4 mg PO QAM 02/02/25 02/02/25 History Patient History Medical History Adenocarcinoma of rectosigmoid junction Surgical History History of colonoscopy History of resection of large bowel Family History Father Stroke Mother Diabetes Social History Smoking Status: Never smoker Do You Dip or Chew Tobacco: No; Hx Alcohol Use: No Hx Substance Use: No Preferred Language: Pashto Communication Ability: Effective Armature Inspector Required: No Beliefs That Will Affect Care: None Current Living Situation: Alone Feels Safe at Home: Yes Safety Concerns: Feels Safe At This Time Assistive Devices: None Physical Exam Physical Exam: Pleasant elderly man in no distress Constitutional: WD/WN, vitals as above Neck: trachea midline, no thyromegaly Respiratory: normal respiratory effort, lungs clear to auscultation Cardiovascular: RRR, no murmur, no edema Gastrointestinal (Abdomen): Percussion/Palpation: abdomen soft; abdomen nontender multiple ecchymoses over abdomen along with old puncture sites Results & Data Vital Signs (Past 12 Hours) Vital Signs Temp Pulse Pulse Resp BP BP Pulse Ox 02/03/25 07:38 36.8 C 20 100/75 98 02/03/25 02:48 36.6 C 84 18 119/79 96 02/03/25 00:53 89 02/03/25 00:03 02/03/25 00:03 36.5 C 88 18 128/91 96 02/02/25 23:03 96 H 18 111/88 94 02/02/25 22:30 96 H 17 108/79 95 02/02/25 22:06 97 H 14 115/81 96 02/02/25 21:00 96 H 18 112/79 97 Pulse Ox O2 Del Method O2 Del Method 02/03/25 07:38 Room Air 02/03/25 02:48 Room Air 02/03/25 00:53 02/03/25 00:03 96 Room Air 02/03/25 00:03 Room Air 02/02/25 23:03 02/02/25 22:30 02/02/25 22:06 02/02/25 21:00 Laboratory Results 02/03/25 02/03/25 02/02/25 Range/Units 06:39 06:08 Unknown WBC 12.33 H (4.8-10.8) K/ul RBC 4.43 L (4.70-6.10) M/uL Hgb 12.1 L (14.0-18.0) g/dl Hct 35.1 L (42.0-52.0) % MCV 79.2 L (80.0-100.0) fL MCH 27.3 (25.0-34.0) pg MCHC 34.5 (32.0-36.0) g/dL RDW Std Deviation 41.3 (36.4-46.3) fL RDW Coeff of Courtney 14.3 (11.5-14.5) % Plt Count 266 (130-400) K/uL MPV 11.1 (9.4-12.4) fL Immature Gran % (Auto) 0.5 % Neut % (Auto) 72.4 % Lymph % (Auto) 16.2 % Piatt % (Auto) 10.6 % Eos % (Auto) 0.1 % Baso % (Auto) 0.2 % Neut # (Auto) 8.93 H (1.40-6.50) K/uL Lymph # (Auto) 2.00 (1.20-3.40) K/uL Piatt # (Auto) 1.31 H (0.11-0.59) K/uL Eos # (Auto) 0.01 (0.00-0.50) K/uL Baso # (Auto) 0.02 (0.00-0.20) K/uL Immature Gran # (Auto) 0.06 (0.01-0.20) K/uL PT (9.0-12.0) Seconds INR (0.9-1.1) Sodium 134 L (136-145) mmol/L Potassium 4.5 (3.5-5.1) mmol/L Chloride 107 (98-107) mmol/L Carbon Dioxide 18 L (21-32) mmol/L Anion Gap 9 (3-11) BUN 98 H (6-23) mg/dl Creatinine 2.69 H D (0.6-1.4) mg/dl Est Cr Clr Drug Dosing 26.6 ml/min eGFR 24.69 BUN/Creatinine Ratio 36.4 H (10-20) Glucose 116 H (70-99(Fasting)) mg/dl Osmolality (280-300) mOsm/kg Calcium 9.0 (8.6-10.3) mg/dl Phosphorus 4.9 (2.5-4.9) mg/dl Magnesium 2.4 (1.7-2.4) mg/dl Total Bilirubin (0.2-1.0) mg/dl AST (13-39) U/L ALT (7-52) U/L Alkaline Phosphatase (34-104) U/L Total Creatine Kinase (30-223) U/L Troponin I High Sens (0-20) pg/ml Total Protein (6.0-8.3) gm/dl Albumin (3.4-5.0) gm/dl Globulin (2.5-4.0) gm/dl Albumin/Globulin Ratio (0.9-2) TSH (0.300-4.500) uIu/ml Urine Color Urine Appearance (Clear) Urine pH (4.5-7.5) Ur Specific Butner (1.000-1.030) Urine Protein (Negative) Urine Glucose (UA) (Negative) Urine Ketones (Negative) Urine Blood (Negative) Urine Nitrite (Negative) Urine Bilirubin (Negative) Urine Urobilinogen (Negative) Ur Leukocyte Esterase (Negative) Urine WBC (Auto) (0-5) /hpf Urine RBC (Auto) (0-2) /hpf U Hyaline Cast (Auto) (0-2) /lpf U Epithel Cells (Auto) (0-2) /hpf Urine Bacteria (Auto) (None Seen) Granular Casts (None Prsent) /lpf Urine Osmolality 541 (500-800) mOsm/kg Ur Random Sodium 18 mmol/L Urine Comment Stool Occult Bld Scrn Positive A (Negative) 02/02/25 02/02/25 02/02/25 Range/Units 21:09 16:46 13:21 WBC 18.35 H (4.8-10.8) K/ul RBC 5.21 (4.70-6.10) M/uL Hgb 13.7 L (14.0-18.0) g/dl Hct 40.0 L (42.0-52.0) % MCV 76.8 L (80.0-100.0) fL MCH 26.3 (25.0-34.0) pg MCHC 34.3 (32.0-36.0) g/dL RDW Std Deviation 38.5 (36.4-46.3) fL RDW Coeff of Courtney 14.0 (11.5-14.5) % Plt Count 348 (130-400) K/uL MPV 10.9 (9.4-12.4) fL Immature Gran % (Auto) 0.7 % Neut % (Auto) 86.1 % Lymph % (Auto) 5.9 % Piatt % (Auto) 7.2 % Eos % (Auto) 0.0 % Baso % (Auto) 0.1 % Neut # (Auto) 15.81 H (1.40-6.50) K/uL Lymph # (Auto) 1.09 L (1.20-3.40) K/uL Piatt # (Auto) 1.32 H (0.11-0.59) K/uL Eos # (Auto) 0.00 (0.00-0.50) K/uL Baso # (Auto) 0.01 (0.00-0.20) K/uL Immature Gran # (Auto) 0.12 (0.01-0.20) K/uL PT 10.7 (9.0-12.0) Seconds INR 1.0 (0.9-1.1) Sodium 127 L (136-145) mmol/L Potassium 5.0 (3.5-5.1) mmol/L Chloride 98 (98-107) mmol/L Carbon Dioxide 17 L (21-32) mmol/L Anion Gap 12 H (3-11) BUN 113 H (6-23) mg/dl Creatinine 3.25 H (0.6-1.4) mg/dl Est Cr Clr Drug Dosing 21.9 ml/min eGFR 19.68 BUN/Creatinine Ratio 34.8 H (10-20) Glucose 179 H (70-99(Fasting)) mg/dl Osmolality 315 H (280-300) mOsm/kg Calcium 9.6 (8.6-10.3) mg/dl Phosphorus (2.5-4.9) mg/dl Magnesium 2.6 H (1.7-2.4) mg/dl Total Bilirubin 0.6 (0.2-1.0) mg/dl AST 15 (13-39) U/L ALT 39 (7-52) U/L Alkaline Phosphatase 106 H (34-104) U/L Total Creatine Kinase 30 (30-223) U/L Troponin I High Sens 33.5 H 32.5 H (0-20) pg/ml Total Protein 8.0 (6.0-8.3) gm/dl Albumin 4.4 (3.4-5.0) gm/dl Globulin 3.6 (2.5-4.0) gm/dl Albumin/Globulin Ratio 1.2 (0.9-2) TSH 0.782 (0.300-4.500) uIu/ml Urine Color Yellow Urine Appearance Cloudy A (Clear) Urine pH 5.0 (4.5-7.5) Ur Specific Butner 1.017 (1.000-1.030) Urine Protein 2+ H (Negative) Urine Glucose (UA) 1+ H (Negative) Urine Ketones Negative (Negative) Urine Blood 3+ H (Negative) Urine Nitrite Negative (Negative) Urine Bilirubin Negative (Negative) Urine Urobilinogen Negative (Negative) Ur Leukocyte Esterase 2+ H (Negative) Urine WBC (Auto) >50 H (0-5) /hpf Urine RBC (Auto) 6-10 H (0-2) /hpf U Hyaline Cast (Auto) >20 H (0-2) /lpf U Epithel Cells (Auto) 6-10 H (0-2) /hpf Urine Bacteria (Auto) None Seen (None Seen) Granular Casts Present A (None Prsent) /lpf Urine Osmolality (500-800) mOsm/kg Ur Random Sodium mmol/L Urine Comment Stool Occult Bld Scrn (Negative) Diagnostic Findings Chest X-Ray 02/02/25 13:08 XR chest 1V portable CLINICAL HISTORY: weakness COMPARISON STUDY: None FINDINGS: Heart size and pulmonary vasculature are normal. No consolidation or pleural effusion. No pneumothorax. IMPRESSION: No acute findings. ACT 112: Negative or not required by law. Electronically signed by: Mao Bustos M.D. 02/02/2025 1:[address] 02/02/25 13:08 CT SCAN OF THE BRAIN WITHOUT IV CONTRAST CLINICAL HISTORY: Fall. COMPARISON STUDY: None. TECHNIQUE: Unenhanced axial CT scan of the brain was performed from the vertex to the skull base. A dose lowering technique was utilized adhering to the principles of ALARA. FINDINGS: Brain parenchyma: No acute intracranial hemorrhage, midline shift or mass effect is present. Nelson-white matter differentiation is preserved. There are no extra- axial fluid collections. There are no findings to suggest acute dural sinus thrombosis or acute territorial infarct. White matter hypodensity suggests small vessel disease. Ventricles, sulci, cisterns: There is no hydrocephalus. The basal cisterns are patent. Calvarium: There are no calvarial fractures. Sinuses and mastoids: The visualized paranasal sinuses are clear. The mastoid air cells are well pneumatized. Orbits: The bony orbits are grossly intact. IMPRESSION: 1. No acute intracranial findings. 2. No calvarial fractures. ACT 112: Negative or not required by law. Electronically signed by: Devin Abdi M.D. 02/02/2025 3:[address] 02/02/25 13:11 CT cervical spine wo con CT DOSE: 1135.92 mGy.cm CLINICAL HISTORY: s/p fall, possible syncope. COMPARISON: None TECHNIQUE: Multiple axial CT images of the cervical spine were obtained without contrast. A dose lowering technique was utilized adhering to the principles of ALARA. FINDINGS: There are mild diffuse degenerative changes of the cervical spine. There are small calcifications adjacent to the anterior superior aspect of the C4, C5, C6, and C7 vertebral bodies which are likely degenerative in nature. No cervical spine fracture or subluxation seen. IMPRESSION: No cervical spine fracture seen. ACT 112: Negative or not required by law. The above report was generated using voice recognition software. It may contain grammatical, syntax or spelling errors. Electronically signed by: Mao Bustos M.D. 02/02/2025 3:28 PM Abdomen/Pelvis CT 02/02/25 14:[address] WITHOUT CONTRAST CT DOSE: 869.62 mGy.cm HISTORY: Follow-up study in patient with history of rectosigmoid carcinoma and acute GI bleed Stoma blood,rectosigmoid CA,nonpatent coloproctost TECHNIQUE: Multiaxial CT images of the abdomen and pelvis were performed without contrast. A dose lowering technique was utilized adhering to the principles of ALARA. COMPARISON STUDY: None. FINDINGS: Moderate coronary artery calcifications. Trace right pleural effusion with mild bibasilar atelectasis. 5 mm solid nodule in the right lower lobe on image 4 series 3. No pneumatosis or pneumoperitoneum. The unenhanced spleen, pancreas, contracted gallbladder and right adrenal gland are within normal limits. Thickening of the left adrenal gland favors hyperplasia. There are a few scattered punctate calcifications noted throughout the liver. Possible cyst of the right hepatic lobe, 9 mm. There are a few left- sided renal sinus cysts. Moderate right-sided hydroureteronephrosis with ureteral stent in place. Prostatomegaly. Bladder wall thickening which speculation and numerous diverticula. No renal or ureteral calculi. Atherosclerosis of the aorta without aneurysm. No lymphadenopathy. Moderate distal soft tissue wall thickening with periesophageal stranding. There is additional wall thickening of the pylorus, first and second portions of the duodenum with apparent mucosal ulceration involving the first portion of the duodenum on image 107 series 3. No abscess or definite extraluminal air. Soft tissue thickening with centrally air-filled collection within the presacral tissues measures up to approximately 9 cm and may demonstrate fistulous connection with the adjacent rectum where there are associated surgical sutures. There is a right lower quadrant ileostomy. Noninflamed appendix. No acute fracture or destructive bone lesion. Likely chronic anterior cortical thickening of the sacrum adjacent to the aforementioned collection. Possible sebaceous cyst in the left lower back measuring 3 cm. IMPRESSION: 1. Findings suggestive of acute duodenitis/peptic ulcer disease involving the first and second portions of the duodenum. Findings could be correlated with endoscopy to exclude an ulcerative mucosal malignancy. 2. No bowel obstruction, pneumoperitoneum or abscess. 3. Probable distal esophagitis. 4. Likely chronic presacral soft tissue thickening/collection which may demonstrate fistulous connection with the adjacent rectum. 5. Right lower quadrant ileostomy. 6. Prostatomegaly with chronic outlet obstruction. 7. Moderate right-sided hydroureteronephrosis with ureteral stent in place. 8. 5 mm solid nodule of the right lower lobe. ACT 112: Negative or not required by law. The above report was generated using voice recognition software. It may contain grammatical, syntax or spelling errors. Electronically signed by: Anson Alvarez M.D. 02/02/2025 3:31 PM
[2025-02-03] MEDS: TAMSULOSIN HCL 0.4 MG CAP PO SCH (09:19)
--- NOTE | 2025-02-03 12:30 | Hospitalist Progress Note ---
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 #Upper GI Bleed #History rectosigmoid adenocarcinoma S/P LAR with coloproctostomy #Possible ulcer/duodenitis vs underlying malignancy -S/P exploratory laparotomy, takedown of colorectal anastomoses, revised anastomoses, diver[place] [facility] [place]Today in ER Afebrile, P: 105, R: 16, BP 104/80, 92% on room air -CT Abd/pelvis Findings suggestive of acute duodenitis/peptic ulcer disease involving the first and second portions of the duodenum. Findings could be correlated with endoscopy to exclude an ulcerative mucosal malignancy. Plan: -GI consult, appreciate recs -trend Hgb -continue protonix IV bid -EGD on Wednesday per GI, clear liquid diet until then, NPO after midnight -needs colorectal surgery follow up given likely too high ileostomy output and to repair colorectal stricture per outpt chart review: Flex Sig 11/2024 Impression: Preparation of the colon was fair. Non-patent end-to-end coloproctostomy, characterized by severe stenosis. Unable to identify the true anastomotic lumen due to the progression of the stenosis. A small <5mm area of anastomotic dehiscence was noted. Dilation was not performed. Benign granular polypoid lesion at the colonic anastomosis. 01/12/25 MRI Rectal Cancer w/wo contrast: Fibrotic stenosis and tethering of the rectosigmoid anastomosis. In addition, there is breakdown of the posterior aspect of the anastomosis with an associated presacral collection. No viable tumor is seen. 01/25/25 [place] up with [place] [facility] [place] decision to keep his ileostomy in place and was concern of ileostomy is putting out too much and causing dehydration. Plan was to see back in 1 month to discuss formal repair of his colorectal stricture. #Syncope -Reported lightheaded with standing x 1 week with suspected syncope yesterday -CT Head: No acute intracranial findings. No calvarial fractures. -Suspect orthostatic hypotension in setting of dehydration, blood loss #ELDON #Dehydration #Hyperosmolar Hyponatremia -Poor oral intake. Suspect moderate ostomy output -CT abd/pelvis: Prostatomegaly with chronic outlet obstruction. Moderate right- sided hydroureteronephrosis with ureteral stent in place. -BUN: 113, Cr: 3.25 -Recent post op ELDON [place] [facility] [place] Improvement of renal function upon discharge on 01/15/25. (Max Cr: 2.6 on 01/11/25, improved to Cr: 1.9 on 01/15/25) #Abnormal UA #Hydronephrosis #Leukocytosis -01/10/25 S/P Cystoscopy, bilateral retrograde pyelograms, Cystoscopy, right ureteral stent placement, left ureteral catheter placement [place] [facility] [place]Was initially treated for possible UTI with Rocephin and urine culture was negative so antibiotics discontinued during [place] [facility]. -Denies dysuria, hematuria, urinary frequency or retention -Abnormal UA: 2+ leuk esterase, >50 WBC, 6-10 RBC, 6-10 epithelial cells, no bacteria, granular casts present -elevated leukocytosis could be 2/2 duodenitis vs. dehydration vs UTI Plan: -Urine culture, blood culture pending -Empiric Rocephin for now, follow urine culture #Elevated Troponin -Denies CP, SOB -EKG: Sinus rhythm, rate 80 RBBB per my interpretation -Per outpatient chart review EKG 01/10/2025: Sinus rhythm, occasional PVC, RBBB #HTN -Hold amlodipine for now with lower BPs and symptoms of orthostasis #BPH -Continue Flomax -Will hold finasteride for now with orthostatic symptoms #Pulmonary nodule -CT abd/pelvis noted 5 mm solid nodule of the right lower lobe. -Will need further outpatient follow up I spent a total of 50 minutes in direct patient care, including [id number] time with the patient and/or family, reviewing medical records, ordering and reviewing diagnostic tests, and coordinating care with other healthcare providers. This time includes: history taking, physical examination, medical decision making, counseling, ECG interpretation, imaging interpretation, lab interpretation, orders, and education, excluding time spent in the performance of separately billed services. Admission and Anticipated Discharge Date Admission Date: February 02, 2025 Subjective Patient seen and examined at bedside. present. Patient offered medical voucher clerk but did not want one. Patient doing well today. Has been having black stools for one week and had a syncopal event yesterday. Feels better than yesterday. No other associated symptoms. Review of Systems Review of Systems: CONSTITUTIONAL: Patient denies fevers, chills, sweats and weight changes. EYES: Patient denies any visual symptoms. EARS, NOSE, AND THROAT: No difficulties with hearing. No symptoms of rhinitis or sore throat. CARDIOVASCULAR: Patient denies chest pains, palpitations, orthopnea and paroxysmal nocturnal dyspnea. RESPIRATORY: No dyspnea on exertion, no wheezing or cough. GI: melena : No urinary hesitancy or dribbling. No nocturia or urinary frequency. No abnormal urethral discharge. MUSCULOSKELETAL: No myalgias or arthralgias. NEUROLOGIC: No chronic headaches, no seizures. Patient denies numbness, tingling or weakness. PSYCHIATRIC: Patient denies problems with mood disturbance. No problems with anxiety. ENDOCRINE: No excessive urination or excessive thirst. DERMATOLOGIC: Patient denies any rashes or skin changes. Physical Exam Physical Exam: Gen: A&O 3 NAD HEENT: NCAT, EOMI, not icteric. External ears normal. No rhinorrhea. Moist mucous membranes. Neck: Supple, full range of motion, no observable masses, No meningeal sign. Lungs: No Respiratory distress. CV: RRR, no edema. Abdomen: Soft, nondistended, No rebound tenderness. Noted melena in colostomy bag MSK: No joint swelling, no redness. Skin: No rashes, petechiae, lesions. Normal color per patient. Neuro: Normal Gait, Grossly intact. Psych: Appropriate for situation. Results & Data Results & Data Vital Signs (Past 12 Hours) Vital Signs Temp Pulse Pulse Resp BP Pulse Ox O2 Del Method 02/03/25 11:00 36.6 C 98 H 21 102/75 98 Room Air 02/03/25 10:05 Room Air 02/03/25 07:38 36.8 C 20 100/75 98 Room Air 02/03/25 02:48 36.6 C 84 18 119/79 96 Room Air 02/03/25 00:53 89 Laboratory Results -personally reviewed, WBC downtrending, Hgb slightly downtrended, creatinine 2.69 downtrended, serum osmoles and urine osmoles suggestive of dehydration, UA strongly suggestive of infection Medications Administered Pantoprazole Sodium (Protonix) 40 mg in 10 mls @ 5 mls/min IV BID FARIHA Stop: 03/05/25 00:02 Last Admin: 02/03/25 09:19 Dose: 5 mls/min Documented By: florencio Admin: 02/03/25 00:39 Dose: 5 mls/min Documented By: LENORA Sodium Chloride (Nss) 1,000 mls @ 80 mls/hr IV .[id number] FARIHA Stop: 02/04/25 01:02 EST Last Admin: 02/03/25 00:39 Dose: 80 mls/hr Documented By: LENORA Ceftriaxone Sodium (Rocephin) 2,000 mg in 50 mls @ 100 mls/hr IV Q24H FARIHA Stop: 02/05/25 00:02 Last Infusion: 02/03/25 01:09 Dose: Infused Documented By: Admin: 02/03/25 00:38 Dose: 100 mls/hr Documented By: LENORA Tamsulosin HCl (Tamsulosin Hcl 0.4 Mg Cap) 0.4 mg PO QAM FARIHA Stop: 03/05/25 08:59 Last Admin: 02/03/25 09:19 Dose: 0.4 mg Documented By: florencio
[2025-02-03 17:04] LABS: Hematocrit (blood only) 32.4 % (42.0-52.0); Hemoglobin 11.4 g/dl (14.0-18.0); Mean Corpuscular Hemoglobin 27.8 pg (25.0-34.0); Mean Corpuscular Volume 79.0 fL (80.0-100.0); Platelet Count 264 K/uL (130-400); RDW Standard Deviation 41.1 fL (36.4-46.3); Red Blood Count 4.10 M/uL (4.70-6.10); White Blood Count 11.70 K/ul (4.8-10.8)
[2025-02-03] MEDS: ACETAMINOPHEN 1,000 MG/100 ML VIAL IV PRN (20:24)
--- NOTE | 2025-02-04 05:46 | Electrocardiogram Report ---
Test Reason : Blood Pressure : */* mmHG Vent. Rate : 90 BPM Atrial Rate : 90 BPM P-R Int : 152 ms QRS Dur : 142 ms QT Int : 388 ms P-R-T Axes : 70 18 4 degrees QTcB Int : 474 ms Normal sinus rhythm Right bundle branch block Abnormal ECG When compared with ECG of 02-Feb-2025 13:34, No significant change Confirmed by Jin Alejo ([id number] on 02/04/2025 5:45:54 AM Referred By: REFERRED SELF Confirmed By: Jin Alejo
[2025-02-04 07:00] LABS: Hematocrit (blood only) 28.4 % (42.0-52.0); Hemoglobin 9.6 g/dl (14.0-18.0); Mean Corpuscular Hemoglobin 26.8 pg (25.0-34.0); Mean Corpuscular Volume 79.3 fL (80.0-100.0); Platelet Count 198 K/uL (130-400); RDW Standard Deviation 41.7 fL (36.4-46.3); Red Blood Count 3.58 M/uL (4.70-6.10); White Blood Count 7.25 K/ul (4.8-10.8)
[2025-02-04 07:32] LABS: Alanine Aminotransferase 25.0 U/L (7-52); Albumin Globulin Ratio 1.2 (0.9-2); Albumin Level 3.1 gm/dl (3.4-5.0); Alkaline Phosphatase 71.0 U/L (34-104); Anion Gap 7.0 (3-11); Bilirubin,Total 0.3 mg/dl (0.2-1.0); Blood Urea Nitrogen 71.0 mg/dl (6-23); Calcium 8.4 mg/dl (8.6-10.3); Carbon Dioxide 17.0 mmol/L (21-32); Chloride 112.0 mmol/L (98-107); Creatinine Clr Calc Pharmacy 35.3 ml/min; Globulin 2.5 gm/dl (2.5-4.0); Glucose 95.0 mg/dl (70-99(Fasting)); Magnesium 2.2 mg/dl (1.7-2.4); Potassium 4.0 mmol/L (3.5-5.1); Sodium 136.0 mmol/L (136-145); Total Protein 5.6 gm/dl (6.0-8.3)
--- NOTE | 2025-02-04 07:45 | Hospitalist Progress Note ---
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 #Upper GI Bleed #History rectosigmoid adenocarcinoma S/P LAR with coloproctostomy #Possible ulcer/duodenitis vs underlying malignancy -S/P exploratory laparotomy, takedown of colorectal anastomoses, revised anastomoses, diverting ostomy by Dr. Yip on 01/10/25 at [facility] [place]. -In ER Afebrile, P: 105, R: 16, BP 104/80, 92% on room air -CT Abd/pelvis Findings suggestive of acute duodenitis/peptic ulcer disease involving the first and second portions of the duodenum. Findings could be hattie elated with endoscopy to exclude an ulcerative mucosal malignancy. Plan: -GI consulted, appreciate recs -trend Hgb -continue protonix IV bid -EGD on Wednesday per GI, clear liquid diet until then, NPO after midnight -needs colorectal surgery follow up given likely too high ileostomy output and to repair colorectal stricture per outpt chart review: Flex Sig 11/2024 Impression: Preparation of the colon was fair. Non-patent end-to-end coloproctostomy, characterized by severe stenosis. Unable to identify the true anastomotic lumen due to the progression of the stenosis. A small <5mm area of anastomotic dehiscence was noted. Dilation was not performed. Benign granular polypoid lesion at the colonic anastomosis. 01/12/25 MRI Rectal Cancer w/wo contrast: Fibrotic stenosis and tethering of the rectosigmoid anastomosis. In addition, there is breakdown of the posterior aspect of the anastomosis with an associated presacral collection. No viable tumor is seen. 01/25/25 Follow up with colorectal surgery at [facility] [place] and decision to keep his ileostomy in place and was concern of ileostomy is putting out too much and causing dehydration. Plan was to see back in 1 month to discuss formal repair of his colorectal stricture. #Syncope -Reported lightheaded with standing x 1 week with suspected syncope yesterday (p rior to admission) -CT Head: No acute intracranial findings. No calvarial fractures. -Suspect orthostatic hypotension in setting of dehydration, blood loss #ELDON #Dehydration #Hyperosmolar Hyponatremia -Poor oral intake. Suspect moderate ostomy output -CT abd/pelvis: Prostatomegaly with chronic outlet obstruction. Moderate right- sided hydroureteronephrosis with ureteral stent in place. -BUN: 113, Cr: 3.25, now Cr down to 2 -Recent post op ELDON treated with IVF at [facility] [place] . Improvement of renal function upon discharge on 01/15/25. (Max Cr: 2.6 on 01/11/25, improved to Cr: 1.9 on 01/15/25) #Abnormal UA #Hydronephrosis #Leukocytosis -01/10/25 S/P Cystoscopy, bilateral retrograde pyelograms, Cystoscopy, right ureteral stent placement, left ureteral catheter placement at [facility] [place] -Was initially treated for possible UTI with Rocephin and urine culture was negative so antibiotics discontinued during recent [facility] [place] admission. -Denies dysuria, hematuria, urinary frequency or retention -Abnormal UA: 2+ leuk esterase, >50 WBC, 6-10 RBC, 6-10 epithelial cells, no bacteria, granular casts present -elevated leukocytosis could be 2/2 duodenitis vs. dehydration vs UTI Plan: -Urine culture, blood culture pending -Empiric Rocephin for now, follow urine culture #Elevated Troponin -Denies CP, SOB -EKG: Sinus rhythm, rate 80 RBBB per my interpretation -Per outpatient chart review EKG 01/10/2025: Sinus rhythm, occasional PVC, RBBB #HTN -Hold amlodipine for now with lower BPs and symptoms of orthostasis #BPH -Continue Flomax -Will hold finasteride for now with orthostatic symptoms #Pulmonary nodule -CT abd/pelvis noted 5 mm solid nodule of the right lower lobe. -Will need further outpatient follow up Admission and Anticipated Discharge Date Admission Date: February 02, 2025 Subjective Patient seen in follow up of GI bleed Hx of colon ca s/p surgery at [facility] [place] GI consulted Hgb 9.6 (down from 12), Cr down to 2 from 3.25 Pt is sitting up in bed in NAD colostomy bag with clear brown fluid. Pt and family at the bedside confirm that before output was black Denies any significant abd. pain, also denies any chest pain or shortness of breath Per previous hx - Has been having black stools for one week and had a syncopal event prior to admission. Feels better. No other associated symptoms. Review of Systems Review of Systems: All systems reviewed & are unremarkable except as noted in Subjective Physical Exam Physical Exam: General: WD/WN M in NAD Head: normocephalic, atraumatic Eyes: PERRL, EOM's intact, conjunctiva non-injected, anicteric ENT: normal inspection external ears, nose Neck: supple Lungs: clear, no respiratory distress, no wheezing/rhonchi/rales CV: RRR, no murmur, no pretibial edema Abd: +ostomy with clear brown output (previously noted black color stool in bag), normal BS, soft, non-tender to palpation Ext: moves extremities Neuro: A&O x 3, no focal deficits noted, normal affect Skin: warm, dry Results & Data Results & Data Vital Signs (Past 12 Hours) Vital Signs Temp Pulse Pulse Resp BP Pulse Ox O2 Del Method 02/04/25 07:00 36.7 C 74 20 105/68 97 Room Air 02/04/25 02:39 36.4 C L 78 16 111/77 98 Room Air 02/03/25 23:52 79 02/03/25 22:36 36.1 C L 83 18 124/74 97 Room Air Laboratory Results 02/04/25 02/03/25 Range/Units 05:49 16:44 WBC 7.25 11.70 H (4.8-10.8) K/ul RBC 3.58 L 4.10 L (4.70-6.10) M/uL Hgb 9.6 L 11.4 L (14.0-18.0) g/dl Hct 28.4 L 32.4 L (42.0-52.0) % MCV 79.3 L 79.0 L (80.0-100.0) fL MCH 26.8 27.8 (25.0-34.0) pg MCHC 33.8 35.2 (32.0-36.0) g/dL RDW Std Deviation 41.7 41.1 (36.4-46.3) fL RDW Coeff of Courtney 14.4 14.3 (11.5-14.5) % Plt Count 198 264 (130-400) K/uL MPV 10.8 10.7 (9.4-12.4) fL Sodium 136 (136-145) mmol/L Potassium 4.0 (3.5-5.1) mmol/L Chloride 112 H (98-107) mmol/L Carbon Dioxide 17 L (21-32) mmol/L Anion Gap 7 (3-11) BUN 71 H D (6-23) mg/dl Creatinine 2.06 H D (0.6-1.4) mg/dl Est Cr Clr Drug Dosing 35.3 ml/min eGFR 34.01 BUN/Creatinine Ratio 34.5 H (10-20) Glucose 95 (70-99(Fasting)) mg/dl Calcium 8.4 L (8.6-10.3) mg/dl Phosphorus 3.6 D (2.5-4.9) mg/dl Magnesium 2.2 (1.7-2.4) mg/dl Total Bilirubin 0.3 (0.2-1.0) mg/dl AST 13 (13-39) U/L ALT 25 (7-52) U/L Alkaline Phosphatase 71 (34-104) U/L Total Protein 5.6 L D (6.0-8.3) gm/dl Albumin 3.1 L (3.4-5.0) gm/dl Globulin 2.5 (2.5-4.0) gm/dl Albumin/Globulin Ratio 1.2 (0.9-2) Medications Administered Current Inpatient Medications Pantoprazole Sodium (Protonix) 40 mg in 10 mls @ 5 mls/min IV BID FARIHA Stop: 03/05/25 00:02 Last Admin: 02/03/25 20:20 Dose: 5 mls/min Ceftriaxone Sodium (Rocephin) 2,000 mg in 50 mls @ 100 mls/hr IV Q24H FARIHA Stop: 02/05/25 00:02 Last Infusion: 02/03/25 23:46 Dose: Infused Ondansetron HCl (Ondansetron Inj 2 Mg/Ml 2 Ml Vial) 4 mg IV Q6H PRN PRN Reason: Nausea Stop: 03/05/25 00:02 Tamsulosin HCl (Tamsulosin Hcl 0.4 Mg Cap) 0.4 mg PO QAM FARIHA Stop: 03/05/25 08:59 Last Admin: 02/03/25 09:19 Dose: 0.4 mg
--- NOTE | 2025-02-04 09:58 | Communication Note ---
Date of Service: February 04, 2025 Feeling fine. Agrees to procedure tomorrow. Indicates he understands what is going on.
[2025-02-05 06:28] LABS: Hematocrit (blood only) 28.0 % (42.0-52.0); Hemoglobin 9.3 g/dl (14.0-18.0); Mean Corpuscular Hemoglobin 26.6 pg (25.0-34.0); Mean Corpuscular Volume 80.2 fL (80.0-100.0); Platelet Count 193 K/uL (130-400); RDW Standard Deviation 41.5 fL (36.4-46.3); Red Blood Count 3.49 M/uL (4.70-6.10); White Blood Count 8.04 K/ul (4.8-10.8)
[2025-02-05 07:25] LABS: Alanine Aminotransferase 23.0 U/L (7-52); Albumin Globulin Ratio 1.2 (0.9-2); Albumin Level 3.1 gm/dl (3.4-5.0); Alkaline Phosphatase 71.0 U/L (34-104); Anion Gap 6.0 (3-11); Bilirubin,Total 0.4 mg/dl (0.2-1.0); Blood Urea Nitrogen 46.0 mg/dl (6-23); Calcium 8.6 mg/dl (8.6-10.3); Carbon Dioxide 19.0 mmol/L (21-32); Chloride 111.0 mmol/L (98-107); Creatinine Clr Calc Pharmacy 36.2 ml/min; Globulin 2.5 gm/dl (2.5-4.0); Glucose 98.0 mg/dl (70-99(Fasting)); Magnesium 2.0 mg/dl (1.7-2.4); Potassium 4.4 mmol/L (3.5-5.1); Sodium 136.0 mmol/L (136-145); Total Protein 5.6 gm/dl (6.0-8.3)
--- NOTE | 2025-02-05 08:36 | Hospitalist Progress Note ---
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 #Upper GI Bleed #History rectosigmoid adenocarcinoma S/P LAR with coloproctostomy #Possible ulcer/duodenitis vs underlying malignancy -S/P exploratory laparotomy, takedown of colorectal anastomoses, revised anastomoses, diverting ostomy by Dr. Yip on 01/10/25 at [facility] [place]. -In ER Afebrile, P: 105, R: 16, BP 104/80, 92% on room air -CT Abd/pelvis Findings suggestive of acute duodenitis/peptic ulcer disease involving the first and second portions of the duodenum. Findings could be hattie elated with endoscopy to exclude an ulcerative mucosal malignancy. Plan: -GI consulted, appreciate recs -trend Hgb, current 9.3 (02/05) stable from yesterday 9.6 (02/04) -colostomy output now w/ clear brown output -continue protonix IV bid -EGD on Wednesday (today) per GI -needs colorectal surgery follow up given likely too high ileostomy output and to repair colorectal stricture per outpt chart review: Flex Sig 11/2024 Impression: Preparation of the colon was fair. Non-patent end-to-end coloproctostomy, characterized by severe stenosis. Unable to identify the true anastomotic lumen due to the progression of the stenosis. A small <5mm area of anastomotic dehiscence was noted. Dilation was not performed. Benign granular polypoid lesion at the colonic anastomosis. 01/12/25 MRI Rectal Cancer w/wo contrast: Fibrotic stenosis and tethering of the rectosigmoid anastomosis. In addition, there is breakdown of the posterior aspect of the anastomosis with an associated presacral collection. No viable tumor is seen. 01/25/25 Follow up with colorectal surgery at [facility] [place] and decision to keep his ileostomy in place and was concern of ileostomy is putting out too much and causing dehydration. Plan was to see back in 1 month to discuss formal repair of his colorectal stricture. #Syncope -Reported lightheaded with standing x 1 week with suspected syncope yesterday (prior to admission) -CT Head: No acute intracranial findings. No calvarial fractures. -Suspect orthostatic hypotension in setting of dehydration, blood loss #ELDON #Dehydration #Hyperosmolar Hyponatremia -Poor oral intake. Suspect moderate ostomy output -CT abd/pelvis: Prostatomegaly with chronic outlet obstruction. Moderate right- sided hydroureteronephrosis with ureteral stent in place. -BUN: 113, Cr: 3.25, now Cr down to 2 -Recent post op ELDON treated with IVF at [facility] [place] [place] . Improvement of renal function upon discharge on 01/15/25. (Max Cr: 2.6 on 01/11/25, improved to Cr: 1.9 on 01/15/25) #Abnormal UA #Hydronephrosis #Leukocytosis -01/10/25 S/P Cystoscopy, bilateral retrograde pyelograms, Cystoscopy, right ureteral stent placement, left ureteral catheter placement at [facility] [place] -Was initially treated for possible UTI with Rocephin and urine culture was negative so antibiotics discontinued during recent [facility] [place] [place] admission. -Denies dysuria, hematuria, urinary frequency or retention -Abnormal UA: 2+ leuk esterase, >50 WBC, 6-10 RBC, 6-10 epithelial cells, no bacteria, granular casts present -elevated leukocytosis could be 2/2 duodenitis vs. dehydration vs UTI Plan: -Urine culture - negative -Blood cultx - negat. in 48 hrs -Empiric Rocephin given #Elevated Troponin -Denies CP, SOB -EKG: Sinus rhythm, rate 80 RBBB per my interpretation -Per outpatient chart review EKG 01/10/2025: Sinus rhythm, occasional PVC, RBBB #HTN -Hold amlodipine for now with lower BPs and symptoms of orthostasis #BPH -Continue Flomax -Will hold finasteride for now with orthostatic symptoms #Pulmonary nodule -CT abd/pelvis noted 5 mm solid nodule of the right lower lobe. -Will need further outpatient follow up Admission and Anticipated Discharge Date Admission Date: February 02, 2025 Subjective Patient seen in follow up of GI bleed Hx of colon ca s/p surgery at [facility] [place] [place] GI consulted Hgb 9.3 (stable from yesterday) (down from 12), Cr down to 2 from 3.25 Pt is sitting up in bed in NAD colostomy bag with clear brown fluid - unchanged from yesterday. Pt and family at the bedside confirm that before output was black Denies any significant abd. pain, also denies any chest pain or shortness of breath Per previous hx - Has been having black stools for one week and had a syncopal event prior to admission. Feels better. No other associated symptoms. Plan for EGD today. Review of Systems Review of Systems: All systems reviewed & are unremarkable except as noted in Subjective Physical Exam Physical Exam: General: WD/WN M in NAD Head: normocephalic, atraumatic Eyes: PERRL, EOM's intact, conjunctiva non-injected, anicteric ENT: normal inspection external ears, nose Neck: supple Lungs: clear, no respiratory distress, no wheezing/rhonchi/rales CV: RRR, no murmur, no pretibial edema Abd: +ostomy with clear brown output (previously noted black color stool in bag), normal BS, soft, non-tender to palpation Ext: moves extremities Neuro: A&O x 3, no focal deficits noted, normal affect Skin: warm, dry Results & Data Results & Data Vital Signs (Past 12 Hours) Vital Signs Temp Pulse Pulse Resp BP Pulse Ox O2 Del Method 02/05/25 07:36 36.6 C 70 18 107/65 99 Room Air 02/05/25 07:16 70 02/04/25 22:47 77 02/04/25 22:00 36.6 C 76 16 112/72 96 Room Air Laboratory Results 02/05/25 Range/Units 05:52 WBC 8.04 (4.8-10.8) K/ul RBC 3.49 L (4.70-6.10) M/uL Hgb 9.3 L (14.0-18.0) g/dl Hct 28.0 L (42.0-52.0) % MCV 80.2 (80.0-100.0) fL MCH 26.6 (25.0-34.0) pg MCHC 33.2 (32.0-36.0) g/dL RDW Std Deviation 41.5 (36.4-46.3) fL RDW Coeff of Courtney 14.3 (11.5-14.5) % Plt Count 193 (130-400) K/uL MPV 10.6 (9.4-12.4) fL Sodium 136 (136-145) mmol/L Potassium 4.4 (3.5-5.1) mmol/L Chloride 111 H (98-107) mmol/L Carbon Dioxide 19 L (21-32) mmol/L Anion Gap 6 (3-11) BUN 46 H D (6-23) mg/dl Creatinine 2.02 H (0.6-1.4) mg/dl Est Cr Clr Drug Dosing 36.2 ml/min eGFR 34.83 BUN/Creatinine Ratio 22.8 H (10-20) Glucose 98 (70-99(Fasting)) mg/dl Calcium 8.6 (8.6-10.3) mg/dl Phosphorus 3.1 (2.5-4.9) mg/dl Magnesium 2.0 (1.7-2.4) mg/dl Total Bilirubin 0.4 (0.2-1.0) mg/dl AST 14 (13-39) U/L ALT 23 (7-52) U/L Alkaline Phosphatase 71 (34-104) U/L Total Protein 5.6 L (6.0-8.3) gm/dl Albumin 3.1 L (3.4-5.0) gm/dl Globulin 2.5 (2.5-4.0) gm/dl Albumin/Globulin Ratio 1.2 (0.9-2) Medications Administered Current Inpatient Medications Pantoprazole Sodium (Protonix) 40 mg in 10 mls @ 5 mls/min IV BID FARIHA Stop: 03/05/25 00:02 Last Admin: 02/04/25 20:08 Dose: 5 mls/min Ondansetron HCl (Ondansetron Inj 2 Mg/Ml 2 Ml Vial) 4 mg IV Q6H PRN PRN Reason: Nausea Stop: 03/05/25 00:02 Tamsulosin HCl (Tamsulosin Hcl 0.4 Mg Cap) 0.4 mg PO QAM FARIHA Stop: 03/05/25 08:59 Last Admin: 02/04/25 08:19 Dose: 0.4 mg
[2025-02-05] MEDS: SODIUM CHLORIDE 0.9% 500 ML IV ONE (09:15)
--- NOTE | 2025-02-05 10:17 | History & Physical Bridge Note ---
Date of Service February 05, 2025 History & Physical Bridge Note I have examined the patient, reviewed the History & Physical and in the interval since the performance of the History & Physical I have noted the following changes of clinical significance: no changes noted. Patient with history of dark stools x 1 week. Patient has a history of colon cancer and just had diverting ileostomy done at [facility] for anastomotic problems. no further dark stools per patient. Hgb has dropped from initial presentation. hgb 9.3 today. rest of GI ros are unremarkable. - will plan on EGD for today for further evaluation. Supervising Physician Co-Signing Physician Notes I saw and examined this patient with our nurse practitioner and agree with her assessment and plan. Hemodynamically stable hemoglobin 9.3. Okay to proceed with endoscopy today.
[2025-02-05] MEDS ORDERED: ATROPINE SULFATE 0.1 MG/ML 10ML SYR IV PRN (15:24)
--- NOTE | 2025-02-05 15:24 | Anesthesiology Consultation ---
Date of Service February 05, 2025 Assessment & Plan ASA ASA3 Proposed Anesthesia Anesthesia Type: MAC Risk / Benefits Reviewed With: PT / POA / Parent / Guardian, Accepts Plan and Informed Consent Obtained History Surgery Operation Date: 02/05/25 16:45 Proposed Procedures p Esophagogastroduodenoscopy Dr. Keyla Ramires MD Height/Weight Height: 5 ft 11 in Weight: 75.8 kg Allergies Allergy/AdvReac Type Severity Reaction Status Date / Time No Known Allergies Allergy Verified 05/18/02 15:51 Medications Home Medications Medication Instructions Recorded Confirmed Last Taken amlodipine 10 mg tablet 10 mg PO QAM 02/02/25 02/02/25 Unknown finasteride 5 mg tablet 5 mg PO QAM 02/02/25 02/02/25 Unknown melatonin 10 mg tablet 10 mg PO HS 02/02/25 02/02/25 Unknown tamsulosin 0.4 mg capsule 0.4 mg PO QAM 02/02/25 02/02/25 Unknown Active Medications Generic Name Dose Route Start Last Admin Trade Name Freq PRN Reason Stop Dose Admin Pantoprazole Sodium 40 mg in 10 mls @ 5 mls/min 02/03/25 00:03 02/05/25 09:15 Protonix IV 03/05/25 00:02 5 mls/min BID FARIHA Administration Tamsulosin HCl 0.4 mg 02/03/25 09:00 02/04/25 08:19 Tamsulosin Hcl 0.4 Mg Cap PO 03/05/25 08:59 0.4 mg QAM FARIHA Administration Past Medical History Medical History Adenocarcinoma of rectosigmoid junction Exercise / Class Metabolic Activity II 4-5 Yardwork/Stairs/Walk up hill Past Family History Family History Father Stroke Mother Diabetes Past Surgical History Surgical History History of colonoscopy History of resection of large bowel Past Anesthesia History No Hx of Anesthesia Complications and No Family Hx of Anesthesia Complications History of PONV No Hx of PONV and No Hx of Motion Sickness Social History Smoking Status: Never smoker Do You Dip or Chew Tobacco: No Hx Alcohol Use: No Hx Substance Use: No substance use type: does not use Review of Systems denies fever/cough/ colds/ chest pain/ SOB/ DANIEL denies DANIEL Physical Exam Vital Signs Last Vital Signs Temp 36.7 C 02/05/25 11:11 Pulse 64 02/05/25 14:37 Resp 18 02/05/25 11:11 BP 117/70 02/05/25 11:11 Pulse Ox 100 02/05/25 11:11 O2 Del Method Room Air 02/05/25 11:11 ENMT Mouth: + poor dentition; no TMJ abnormality and no dentition abnormality Thyromental Distance: > or= 3.5 Finger Breadths Mallampati Class: II Neck neck extension not limited Respiratory normal respiratory effort; no respiratory distress Auscultation: lungs clear to auscultation bilaterally Cardiovascular Rate/Rhythm: regular rate and regular rhythm Neurologic moves all extremities Psychiatric Orientation: alert and oriented x 3 Testing Laboratory Results 02/05/25 05:52 02/05/25 05:52 PT 10.7 Seconds (9.0-12.0) 02/02/25 13:21 INR 1.0 (0.9-1.1) 02/02/25 13:21 Urine Color Yellow 02/02/25 16:46 Urine Appearance Cloudy (Clear) A 02/02/25 16:46 Urine pH 5.0 (4.5-7.5) 02/02/25 16:46 Ur Specific [place] 1.017 (1.000-1.030) 02/02/25 16:46 Urine Protein 2+ (Negative) H 02/02/25 16:46 Urine Glucose (UA) 1+ (Negative) H 02/02/25 16:46 Urine Ketones Negative (Negative) 02/02/25 16:46 Urine Nitrite Negative (Negative) 02/02/25 16:46 Ur Leukocyte Esterase 2+ (Negative) H 02/02/25 16:46 Urine WBC (Auto) >50 /hpf (0-5) H 02/02/25 16:46 Urine RBC (Auto) 6-10 /hpf (0-2) H 02/02/25 16:46 U Hyaline Cast (Auto) >20 /lpf (0-2) H 02/02/25 16:46 U Epithel Cells (Auto) 6-10 /hpf (0-2) H 02/02/25 16:46 Urine Bacteria (Auto) None Seen (None Seen) 02/02/25 16:46 02/02/25 21:09 Aerobic Blood Culture - Preliminary Blood No growth in Aerobic bottle after 48 hours. Anaerobic Blood Culture - Preliminary No growth in Anaerobic bottle after 48 hours. 02/02/25 21:09 Aerobic Blood Culture - Preliminary Blood No growth in Aerobic bottle after 48 hours. Anaerobic Blood Culture - Preliminary No growth in Anaerobic bottle after 48 hours. 02/02/25 16:46 Urine Culture - Final Urine,Clean Catch No growth - less than 1,000 colonies/mL.
--- NOTE | 2025-02-05 15:58 | GI REPORT ---
[facility] Patient: DERRICK DACOSTA : 1955 Sex at : Male Age: 69 Years Procedure: Upper GI endoscopy Date: 02/05/2025 Attending Physician: Chencho Ramires MD Referring MD: Delmar Brumfield Md Indications: - Suspected upper gastrointestinal bleeding Medications: - Monitored Anesthesia Care Complications: - No immediate complications. Procedure: - Prior to the procedure, a History and Physical was performed, and patient medications and allergies were reviewed. The patient's tolerance of previous anesthesia was also reviewed. The risks and benefits of the procedure and the sedation options and risks were discussed with the patient. All questions were answered, and informed consent was obtained. [Anticoagulant Agents] [Days Prior to Procedure]. [ASA Grade]. After reviewing the risks and benefits, the patient was deemed in satisfactory condition to undergo the procedure. - The EGD scope was introduced through the mouth and advanced to the second part of the duodenum. - The upper GI endoscopy was accomplished without difficulty. - The patient tolerated the procedure well. Findings: - LA Grade D (one or more mucosal breaks involving at least 75% of esophageal circumference) esophagitis with no bleeding was found in the lower third of the esophagus. - The entire examined stomach was normal. Biopsies were taken with a cold forceps for Helicobacter pylori testing. - One non-bleeding duodenal ulcer with a clean ulcer base (Wing Class III) was found in the first portion of the duodenum. The lesion was 20 mm in largest dimension. Impression: - LA Grade D esophagitis with no bleeding. - Normal stomach. Biopsied. - Non-bleeding duodenal ulcer with a clean ulcer base (Wing Class III). Recommendation: - Resume previous diet. - Patient has a contact number available for emergencies. The signs and symptoms of potential delayed complications were discussed with the patient. Return to normal activities tomorrow. Written discharge instructions were provided to the patient. Procedure Code(s): - 93560, Esophagogastroduodenoscopy, flexible, transoral; with biopsy, single or multiple Diagnosis Code(s): - K20.90, Esophagitis, unspecified without bleeding - K26.9, Duodenal ulcer, unspecified as acute or chronic, without hemorrhage or perforation CPT(R) - 2023 copyright [employer]. All Rights Reserved. The CPT codes, CCI edits and ICD codes generated are intended as suggestions and were generated based on input data. These codes are preliminary and upon distribution designer review may be revised to meet current compliance and payer requirements. The provider is responsible for the final determination of appropriate codes, and modifiers. Chencho Ramires MD This document has been electronically signed. Note Initiated:02/05/2025 Note Completed:02/05/2025 3:57 PM \\[id number]
--- NOTE | 2025-02-05 16:17 | Anesthesiology Progress Note ---
Date of Service February 05, 2025 Anesthesia Post Procedure Vital Signs Vital Signs: Temp Pulse Pulse Pulse Resp BP BP 02/05/25 16:09 61 15 128/75 02/05/25 16:07 75 15 98/59 L 02/05/25 15:16 36.2 C L 71 16 138/79 02/05/25 14:37 64 02/05/25 11:11 36.7 C 79 18 117/70 02/05/25 07:36 36.6 C 70 18 107/65 02/05/25 07:16 70 02/04/25 22:47 77 02/04/25 22:00 36.6 C 76 16 112/72 02/04/25 19:01 36.8 C 84 18 100/63 Pulse Ox O2 Del Method 02/05/25 16:09 99 Room Air 02/05/25 16:07 97 Room Air 02/05/25 15:16 99 Room Air 02/05/25 14:37 02/05/25 11:11 100 Room Air 02/05/25 07:36 99 Room Air 02/05/25 07:16 02/04/25 22:47 02/04/25 22:00 96 Room Air 02/04/25 19:01 98 Room Air Transfer of Care Handoff Completed per policy Notes Mental Status: alert / awake / arousable Patient Amnestic to Procedure: Yes Nausea / Vomiting: adequately controlled Pain: adequately controlled Airway Patency, RR, SpO2: stable & adequate BP & HR: stable & adequate Hydration State: stable & adequate Anesthetic Complications: no major complications apparent
[2025-02-05] MEDS: LIDOCAINE 2% 2 ML VIAL/AMP(20MG/ML) INFIL ONE (16:31)
[2025-02-05] MEDS: PROPOFOL IV EMULSION 10 MG/ML 20 ML VIAL IV ONE (16:31)
[2025-02-06 06:27] LABS: Hematocrit (blood only) 26.4 % (42.0-52.0); Hemoglobin 9.2 g/dl (14.0-18.0); Mean Corpuscular Hemoglobin 27.7 pg (25.0-34.0); Mean Corpuscular Volume 79.5 fL (80.0-100.0); Platelet Count 185 K/uL (130-400); RDW Standard Deviation 41.1 fL (36.4-46.3); Red Blood Count 3.32 M/uL (4.70-6.10); White Blood Count 7.27 K/ul (4.8-10.8)
[2025-02-06 06:50] LABS: Alanine Aminotransferase 29.0 U/L (7-52); Albumin Globulin Ratio 1.3 (0.9-2); Albumin Level 3.0 gm/dl (3.4-5.0); Alkaline Phosphatase 72.0 U/L (34-104); Anion Gap 6.0 (3-11); Bilirubin,Total 0.3 mg/dl (0.2-1.0); Blood Urea Nitrogen 30.0 mg/dl (6-23); Calcium 8.2 mg/dl (8.6-10.3); Carbon Dioxide 18.0 mmol/L (21-32); Chloride 112.0 mmol/L (98-107); Creatinine Clr Calc Pharmacy 44.1 ml/min; Globulin 2.3 gm/dl (2.5-4.0); Glucose 96.0 mg/dl (70-99(Fasting)); Magnesium 1.9 mg/dl (1.7-2.4); Potassium 3.9 mmol/L (3.5-5.1); Sodium 136.0 mmol/L (136-145); Total Protein 5.3 gm/dl (6.0-8.3)
[2025-02-06 07:34] VITALS: RESP 16; TEMP 97.5
[2025-02-06 08:23] VITALS: BP 138/79; PULSE 79; O2SAT 98
--- NOTE | 2025-02-06 08:59 | Discharge Summary ---
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 Patient is Samoan speaking and use the mobile equipment servicer service. Per chart review patient with [place] [facility] [place] for exploratory laparotomy, takedown of colorectal anastomoses, revised anastomoses, diverting ostomy by Dr. Yip on 01/10/25. S/P cystoscopy and right ureteral stent for hydronephrosis on 01/10/25 also. Post-op developed ELDON treated with IVF. Was initially treated for possible UTI with Rocephin and urine culture was negative so antibiotics discontinued. Improvement of renal function upon discharge on 01/15/25. Patient states one week ago started with black color output into ostomy bag. States for past week with nausea and having vomiting with eating and drinking. States vomited yesterday black color and this morning black color emesis. Denies any further vomiting. He reports has had constant abdominal discomfort since his procedure several weeks ago and points to across his abdomen. He doesn't feel any worsening abdominal pain. He states he empties his bag multiple times a day and reports has varying amounts of output but is unable to quantify how much. He feels it varies and has been similar for past couple of months. Patient reports for past week having dizziness/lightheadedness with standing. Yesterday stood up and felt lightheaded and reports fell and thinks passed out. He was able to get himself up. Denies dizziness at rest. Denies CP, SOB, NAQVI, vision changes, paresthesias. States hasn't been taking BP meds as concerned with dizziness and low blood pressure. No history EGD in past. Denies NSAID use. Denies fever/chills, NAQVI, neck pain, CP, SOB, orthopnea, palpitations, cough, sore throat, rhinorrhea, paresthesias, extremity weakness, extremity edema, rashes, dysuria, hematuria, urinary retention, urinary frequency. Admission Exam Per Admitting Provider General: no distress, WDWN Head: normocephalic, atraumatic Eyes: PERRL, EOM's intact, conjunctiva non-injected, anicteric ENT: normal inspection external ears, nose, mucous membranes mildly dry Neck: supple, trachea midline Lungs: clear, no respiratory distress, no wheezing/rhonchi/rales CV: RRR, no murmur, no pretibial edema Abd: +ostomy with black color stool noted in bag, normal BS, soft, non-tender to palpation Ext: no cyanosis, no calf tenderness Neuro: A&O x 3, no focal deficits noted, normal affect Skin: warm, dry Principal Diagnosis GI bleed, anemia, secondary to esophagitis and duodenal ulcer ELDON on CKD Discharge Exam General: WD/WN M in NAD Head: normocephalic, atraumatic Eyes: PERRL, EOM's intact, conjunctiva non-injected, anicteric ENT: normal inspection external ears, nose Neck: supple Lungs: clear, no respiratory distress, no wheezing/rhonchi/rales CV: RRR, no murmur, no pretibial edema Abd: +ostomy with clear brown output (previously noted black color stool in bag), normal BS, soft, non-tender to palpation Ext: moves extremities Neuro: A&O x 3, no focal deficits noted, normal affect Skin: warm, dry Discharge Data Allergies Allergy/AdvReac Type Severity Reaction Status Date / Time No Known Allergies Allergy Verified 05/18/02 15:51 Consultations 02/02/25 17:12 ED Decision to Admit Stat 02/02/25 17:14 Consult Gastroenterology Routine Procedures Performed Operation Date: 02/05/25 16:45 Actual Procedures p EGD Biopsy Cytology - Chencho Ramires MD Ordered Studies 02/02/25 13:08 CT head/brain wo con Stat FINDINGS: Brain parenchyma: No acute intracranial hemorrhage, midline shift or mass effect is present. Nelson-white matter differentiation is preserved. There are no extra- axial fluid collections. There are no findings to suggest acute dural sinus thrombosis or acute territorial infarct. White matter hypodensity suggests small vessel disease. Ventricles, sulci, cisterns: There is no hydrocephalus. The basal cisterns are patent. Calvarium: There are no calvarial fractures. Sinuses and mastoids: The visualized paranasal sinuses are clear. The mastoid air cells are well pneumatized. Orbits: The bony orbits are grossly intact. IMPRESSION: 1. No acute intracranial findings. 2. No calvarial fractures. 02/02/25 13:11 CT cervical spine wo con Stat FINDINGS: There are mild diffuse degenerative changes of the cervical spine. There are small calcifications adjacent to the anterior superior aspect of the C4, C5, C6, and C7 vertebral bodies which are likely degenerative in nature. No cervical spine fracture or subluxation seen. IMPRESSION: No cervical spine fracture seen. 02/02/25 14:43 CT abd pelvis wo con Stat FINDINGS: Moderate coronary artery calcifications. Trace right pleural effusion with mild bibasilar atelectasis. 5 mm solid nodule in the right lower lobe on image 4 series 3. No pneumatosis or pneumoperitoneum. The unenhanced spleen, pancreas, contracted gallbladder and right adrenal gland are within normal limits. Thickening of the left adrenal gland favors hyperplasia. There are a few scattered punctate calcifications noted throughout the liver. Possible cyst of the right hepatic lobe, 9 mm. There are a few left- sided renal sinus cysts. Moderate right-sided hydroureteronephrosis with ureteral stent in place. Prostatomegaly. Bladder wall thickening which speculation and numerous diverticula. No renal or ureteral calculi. Atheros clerosis of the aorta without aneurysm. No lymphadenopathy. Moderate distal soft tissue wall thickening with periesophageal stranding. There is additional wall thickening of the pylorus, first and second portions of the duodenum with apparent mucosal ulceration involving the first portion of the duodenum on image 107 series 3. No abscess or definite extraluminal air. Soft tissue thickening with centrally air-filled collection within the presacral tissues measures up to approximately 9 cm and may demonstrate fistulous connection with the adjacent rectum where there are associated surgical sutures. There is a right lower quadrant ileostomy. Noninflamed appendix. No acute fracture or destructive bone lesion. Likely chronic anterior cortical thickening of the sacrum adjacent to the aforementioned collection. Possible sebaceous cyst in the left lower back measuring 3 cm. IMPRESSION: 1. Findings suggestive of acute duodenitis/peptic ulcer disease involving the first and second portions of the duodenum. Findings could be correlated with endoscopy to exclude an ulcerative mucosal malignancy. 2. No bowel obstruction, pneumoperitoneum or abscess. 3. Probable distal esophagitis. 4. Likely chronic presacral soft tissue thickening/collection which may demonstrate fistulous connection with the adjacent rectum. 5. Right lower quadrant ileostomy. 6. Prostatomegaly with chronic outlet obstruction. 7. Moderate right-sided hydroureteronephrosis with ureteral stent in place. 8. 5 mm solid nodule of the right lower lobe. 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 #Upper GI Bleed #History rectosigmoid adenocarcinoma S/P LAR with coloproctostomy #Possible ulcer/duodenitis vs underlying malignancy -S/P exploratory laparotomy, takedown of colorectal anastomoses, revised anastomoses, diverting ostomy by Dr. [place] 01/10/25 [place] [facility] [place]In [place] Afebrile, P: 105, R: 16, BP 104/80, 92% on room air -CT Abd/pelvis Findings suggestive of acute duodenitis/peptic ulcer disease inv olving the first and second portions of the duodenum. Findings could be correlated with endoscopy to exclude an ulcerative mucosal malignancy. Plan: -GI consulted, appreciate recs -trend Hgb, current 9.3 (02/05) stable from yesterday 9.6 (02/04) -colostomy output now w/ clear brown output -continue protonix IV bid -EGD on 02/06/2025 per GI Findings: - LA Grade D (one or more mucosal breaks involving at least 75% of esophageal circumference) esophagitis with no bleeding was found in the lower third of the esophagus. - The entire examined stomach was normal. Biopsies were taken with a cold forceps for Helicobacter pylori testing. - One non-bleeding duodenal ulcer with a clean ulcer base (Wing Class III) was found in the first portion of the duodenum. The lesion was 20 mm in largest dimension. Impression: - LA Grade D esophagitis with no bleeding. - Normal stomach. Biopsied. - Non-bleeding duodenal ulcer with a clean ulcer base (Wing Class III). Recommendation: - Resume previous diet. - Patient has a contact number available for emergencies. The signs and symptoms of potential delayed complications were discussed with the patient. Return to normal activities tomorrow. Written discharge instructions were provided to the patient. -needs colorectal surgery follow up given likely too high ileostomy output and to repair colorectal stricture per outpt chart review: Flex Sig 11/2024 Impression: Preparation of the colon was fair. Non-patent end-to-end coloproctostomy, characterized by severe stenosis. Unable to identify the true anastomotic lumen due to the progression of the stenosis. A small <5mm area of anastomotic dehiscence was noted. Dilation was not performed. Benign granular polypoid lesion at the colonic anastomosis. 01/12/25 MRI Rectal Cancer w/wo contrast: Fibrotic stenosis and tethering of the rectosigmoid anastomosis. In addition, there is breakdown of the posterior aspect of the anastomosis with an associated presacral collection. No viable tumor is seen. 01/25/25 Follow [place] with [place] [facility] [place] decision to keep his ileostomy in place and was concern of ileostomy is putting out too much and causing dehydration. Plan was to see back in 1 month to discuss formal repair of his colorectal stricture. #Syncope -Reported lightheaded with standing x 1 week with suspected syncope yesterday (prior to admission) -CT Head: No acute intracranial findings. No calvarial fractures. -Suspect orthostatic hypotension in setting of dehydration, blood loss #ELDON #Dehydration #Hyperosmolar Hyponatremia -Poor oral intake. Suspect moderate ostomy output -CT abd/pelvis: Prostatomegaly with chronic outlet obstruction. Moderate right- sided hydroureteronephrosis with ureteral stent in place. -BUN: 113, Cr: 3.25, now Cr down to 1.7 -Recent post op ELDON treated with [place]F [place] [facility] [place] Improvement of renal function upon discharge on 01/15/25. (Max Cr: 2.6 on 01/11/25, improved to Cr: 1.9 on 01/15/25) #Abnormal UA #Hydronephrosis #Leukocytosis -01/10/25 S/P Cystoscopy, bilateral retrograde pyelograms, Cystoscopy, right ureteral stent placement, left ureteral catheter placement [place] [facility] [place]Was initially treated for possible UTI with Rocephin and urine culture was negative so antibiotics discontinued during recent [facility] [place]. -Denies dysuria, hematuria, urinary frequency or retention -Abnormal UA: 2+ leuk esterase, >50 WBC, 6-10 RBC, 6-10 epithelial cells, no bacteria, granular casts present -elevated leukocytosis could be 2/2 duodenitis vs. dehydration vs UTI Plan: -Urine culture - negative -Blood cultx - negat. in 48 hrs -Empiric Rocephin given #Elevated Troponin -Denies CP, SOB -EKG: Sinus rhythm, rate 80 RBBB per my interpretation -Per outpatient chart review EKG 01/10/2025: Sinus rhythm, occasional PVC, RBBB #HTN -Hold amlodipine for now with lower BPs and symptoms of orthostasis - current BP 138/79 - follow up w/ PCP and likely resume at that time #BPH -Continue Flomax, finasteride #Pulmonary nodule -CT abd/pelvis noted 5 mm solid nodule of the right lower lobe. -Will need further outpatient follow up Total Time Total Time Spent Total Time Spent (In Minutes): 40 Discharge Plan Discharge Items Patient Disposition: Home - Self-Care Reason For Visit: GI BLEED Discharge Diagnosis: GI bleed, anemia, secondary to esophagitis and duodenal ulcer Condition on Discharge: Fair Activity: Per Instructions section Non-emergency contact: Primary Care Provider, Surgeon, Specialist and Cemetery Laborer Call non-emergency contact if: you have any medication questions and your symptoms worsen Follow-up/Referrals: Albina Chang PA-C [Outside Practitioners] - (Date & Time 02/12/2025 1:00 PM Provider: Vy Rojas MD [facility] ) Diet: Full liquid Diet Comment: for now avoid acidic foods/ juices, caffeine, or spicy foods Addtl Attending Provider Instructions: Follow up with primary care physician, 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 Take pantoprazole 40 mg twice a day. Avoid NSAIDs such as Aleve, ibuprofen, Mortrin. You can take Tylenol. Avoid acidic foods/ juices, caffeine, or spicy foods. Discharge instructions communicated via mobile equipment servicer and with RN at the bedside. Pending Studies at Discharge: Yes Studies:: biopsy from endoscopy Stand-Alone Forms: My [facility] [place], Smoking Cessation Medications and DC Order Prescriptions: New pantoprazole 40 mg tablet,delayed release (DR/EC) 40 mg PO BID Qty: 60 0RF Continued tamsulosin 0.4 mg capsule 0.4 mg PO QAM finasteride 5 mg tablet 5 mg PO QAM melatonin 10 mg Tablet 10 mg PO HS Held amlodipine 10 mg tablet 10 mg PO QAM Hold Instructions: Resume on 02/13/25. hold until seen by primary care doctor Discharge Orders: Discharge Order (Routine); Ordered 02/06/25 Ordered By: Delmar Brumfield Admission Data Admit Date/Time: 02/02/25 17:14 Attending Provider: Delmar Brumfield Admit Provider: Fredy Mitchell Primary Care Provider: Manuel Jj Other Providers: Andrea Gutierrez; Fredy Mitchell; John Rascon. Other Interventions: Discharge Summary Assessment (RN) Last Done: 02/06/25 08:22
== END 2025-02-06 11:13 | disposition home or self-care (01) | DRG 377 ==
LOC: ED 11:59 → SUATTDRO 17:14 → 2E 17:14 → UNDODISIN 02-05 16:12